=== PATIENT | female | born 1990 | race Caucasian/White ===

== ENCOUNTER → 2016-06-17 | Outpatient (CLI) | payer BC ==
[~2016-06-17] MED LIST: ALBUAER2 INH; ANTICRE6 PO; DIVA500T59 PO; DPKSR/250 PO; LEVOIUD; RISP-99 PO; RISP0.5T4 PO; ZOLP5TAB PO
[2016-06-20 14:54] LABS: CHLAMYDIA TRACH RNA*** NOT DETECTED (NOT DETECTED); GC (NEIS GONORRHOEAE)RNA** NOT DETECTED (NOT DETECTED)
== END | disposition home or self-care (01) ==
LOC: C.LABSPEC 17:58
PROVIDERS: ATTEND Obstetrics & Gynecology
DX: Z11.3 Encounter for screening for infections with a predominantly sexual mode of transmission (principal)

== ENCOUNTER → 2016-06-17 | Outpatient (CLI) | payer BC | END | disposition home or self-care (01) | LOC: C.LAB1850 16:47 | PROVIDERS: ATTEND Obstetrics & Gynecology | DX: Z11.3 Encounter for screening for infections with a predominantly sexual mode of transmission (principal) ==

== ENCOUNTER → 2016-06-17 | Outpatient (CLI) | payer BC | END | disposition home or self-care (01) | LOC: C.PAPS 09:58 | PROVIDERS: ATTEND Obstetrics & Gynecology | DX: Z01.419 Encounter for gynecological examination (general) (routine) without abnormal findings (principal) ==

== ENCOUNTER 2016-08-13 16:14 | Observation (INO) | payer BC ==
[~2016-08-13] VITALS: Ht 149.9 cm; Wt 57.7 kg
[~2016-08-13 16:14] MED LIST changes: -DIVA500T59 PO; -DPKSR/250 PO; -RISP-99 PO; -RISP0.5T4 PO; -ZOLP5TAB PO
[2016-08-13] MEDS ORDERED: LORAZEPAM 2 MG/ML 1 ML VIAL IV STA (16:24)
[2016-08-13] MEDS ORDERED: HALOPERIDOL LACTATE 5 MG/ML 1 ML VIAL IM STA (16:24)
[2016-08-13] MEDS ORDERED: SODIUM CHLORIDE 0.9% 1000ML 1,000 ML IV STA ×2 (16:24→19:34)
--- NOTE | 2016-08-13 16:34 | EMERGENCY ROOM VISIT NOTE ---
History Report prepared by Du: Carlos A Rocha Under the Supervision of: Dr. Teofilo Coronel D.O. First contact with patient: 16:24 Chief Complaint: MENTAL HEALTH EVALUATION Stated Complaint: MENTAL HEALTH EVAL History of Present Illness The patient is a 26 year old female who presents to the Emergency Room via EMS with complaints of a persistent altered mental status that started prior to arrival today. Per the nursing staff, the patient was found walking naked on [address]. She was talking to herself, and is continuing to talk to herself. She does respond to questions, however. The patient says that she did "all the drugs in the world today" She also admits to drinking alcohol today. The patient is a [employer] college student. History limited secondary to patient's altered mental status. Source of History: patient History Limited By: AMS Onset: Prior to arrival today Position: other (global - ams) Symptom Intensity: walking down a road naked Timing: other (persistent) Note: Associated symptoms: Talking to herself. Review of Systems See HPI for pertinent positives & negatives. A total of 10 systems reviewed and were otherwise negative. 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 Talking to herself, but would respond to verbal commands. EYES: The conjunctivae are clear. The pupils are round and reactive. EARS, NOSE, MOUTH AND THROAT: The nose is without any evidence of any deformity. Mucous membranes are moist tongue is midline NECK: The neck is nontender and supple. RESPIRATORY: Normal respiratory effort is noted there is no evidence of wheezing rhonchi or rales CARDIOVASCULAR: Regular rate and rhythm noted there no murmurs rubs or gallops normal S1 normal S2 GASTROINTESTINAL: The abdomen is soft. Bowel sounds are present in all quadrants. Abdomen is nontender MUSCULOSKELETAL/EXTREMITIES: There is no evidence of gross deformity full range of motion is noted in the hips and shoulders SKIN: Bruising on left leg, age indeterminate in appearance. No ecchymosis noted on upper body. NEUROLOGIC: Patient is awake alert and oriented to person, place, but no situation. Patellar tendon reflexes 2+ bilaterally. PSYCH: Patient was very guarded and anxious, responding to internal stimuli and laughing inappropriately. Medical Decision & Procedures ER Provider Diagnostic Interpretation: Radiology results as stated below per my review and radiologist interpretation: HEAD CT NONCONTRAST CT DOSE: 537.48 mGy.cm HISTORY: OVERDOSE TECHNIQUE: Multiaxial CT images of the head were performed without the use of intravenous contrast. Automated exposure control was utilized for this study. Comparison: None. Findings: The paranasal sinuses and mastoid air cells are clear. The calvarium and skull base are intact. The ventricles and sulci are within normal limits. There is no mass, hematoma, midline shift, or acute infarct. Impression: No acute intracranial abnormality. Electronically signed by: Alistair Steven M.D. 08/13/2016 5:39 PM Dictated Date/Time: 08/13/2016 5:36 PM CHEST ONE VIEW PORTABLE HISTORY: Overdose COMPARISON: None. FINDINGS: The lungs are clear. Cardiac silhouette is normal in size. No pleural effusions. No pneumothorax. IMPRESSION: No acute process. Electronically signed by: Alistair Steven M.D. 08/13/2016 4:45 PM Dictated Date/Time: 08/13/2016 4:45 PM Laboratory Results 08/13/16 16:35 Red Blood Count 5.06, Mean Corpuscular Volume 85.6, Mean Corpuscular Hemoglobin 30.2, Mean Corpuscular Hemoglobin Concent 35.3, Mean Platelet Volume 9.3, Neutrophils (%) (Auto) 75.9, Lymphocytes (%) (Auto) 18.6, Monocytes (%) (Auto) 4.8, Eosinophils (%) (Auto) 0.3, Basophils (%) (Auto) 0.2, Neutrophils # (Auto) 7.57, Lymphocytes # (Auto) 1.86, Monocytes # (Auto) 0.48, Eosinophils # (Auto) 0.03, Basophils # (Auto) 0.02 Test 08/13/16 16:21 08/13/16 16:35 08/13/16 17:45 08/13/16 18:00 Bedside Glucose 74 mg/dl (70-90) White Blood Count 9.98 K/uL (4.8-10.8) Red Blood Count 5.06 M/uL (4.2-5.4) Hemoglobin 15.3 g/dL (12.0-16.0) Hematocrit 43.3 % (37-47) Mean Corpuscular Volume 85.6 fL (80-100) Mean Corpuscular Hemoglobin 30.2 pg (25-34) Mean Corpuscular Hemoglobin Concent 35.3 g/dl (32-36) Platelet Count 319 K/uL (130-400) Mean Platelet Volume 9.3 fL (7.4-10.4) Neutrophils (%) (Auto) 75.9 % Lymphocytes (%) (Auto) 18.6 % Monocytes (%) (Auto) 4.8 % Eosinophils (%) (Auto) 0.3 % Basophils (%) (Auto) 0.2 % Neutrophils # (Auto) 7.57 K/uL (1.4-6.5) Lymphocytes # (Auto) 1.86 K/uL (1.2-3.4) Monocytes # (Auto) 0.48 K/uL (0.11-0.59) Eosinophils # (Auto) 0.03 K/uL (0-0.5) Basophils # (Auto) 0.02 K/uL (0-0.2) RDW Standard Deviation 39.7 fL (36.4-46.3) RDW Coefficient of Variation 12.7 % (11.5-14.5) Immature Granulocyte % (Auto) 0.2 % Immature Granulocyte # (Auto) 0.02 K/uL (0.00-0.02) Prothrombin Time 12.0 SECONDS (9.0-12.0) Prothromb Time International Ratio 1.1 (0.9-1.1) Activated Partial Thromboplast Time 29.3 SECONDS (21.0-31.0) Partial Thromboplastin Ratio 1.1 Total Bilirubin 1.1 mg/dl (0.2-1) Direct Bilirubin 0.2 mg/dl (0-0.2) Aspartate Amino Transf (AST/SGOT) 15 U/L (15-37) Alanine Aminotransferase (ALT/SGPT) 11 U/L (12-78) Alkaline Phosphatase 62 U/L (45-117) Total Creatine Kinase 118 U/L (26-192) Total Protein 8.2 gm/dl (6.4-8.2) Albumin 4.6 gm/dl (3.4-5.0) Lipase 70 U/L (73-393) Human Chorionic Gonadotropin, Qual NEG (NEG) Salicylates Level < 1.7 mg/dl (2.8-20) Acetaminophen Level < 2 ug/ml (10-30) Ethyl Alcohol mg/dL < 3.0 mg/dl (0-3) Urine Color YELLOW Urine Appearance CLEAR (CLEAR) Urine pH 5.0 (4.5-7.5) Urine Specific [place] 1.010 (1.000-1.030) Urine Protein NEG (NEG) Urine Glucose (UA) NEG (NEG) Urine Ketones 4+ (NEG) Urine Occult Blood NEG (NEG) Urine Nitrite NEG (NEG) Urine Bilirubin NEG (NEG) Urine Urobilinogen NEG (NEG) Urine Leukocyte Esterase NEG (NEG) Urine Opiates Screen NEG (NEG) Urine Methadone, Qualitative NEG (NEG) Urine Barbiturates NEG (NEG) Urine Phencyclidine (PCP) Level NEG (NEG) Ur Amphetamine/Methamphetamine NEG (NEG) MDMA (Ecstasy) Screen NEG (NEG) Urine Benzodiazepines Screen NEG (NEG) Urine Cocaine Metabolite NEG (NEG) Urine Marijuana (THC) NEG (NEG) Test 08/13/16 20:10 Valproic Acid (Depakene) Level < 3 mcg/ml (50-100) [place] Level < 0.2 mMOL/L (0.6-1.2) Laboratory results per my review. Medications Administered Medications (Trade) Dose Ordered Sig/Rafa Route Start Time Stop Time Status Last Admin Dose Admin Sodium Chloride (Nss 1000ml) 1,000 ml @ 999 mls/hr Q1H1M STAT IV 08/13/16 16:24 08/13/16 17:24 DC 08/13/16 17:18 999 MLS/HR Lorazepam (Ativan Inj) 0.5 mg NOW STAT IV 08/13/16 16:24 08/13/16 16:26 DC 08/13/16 17:19 0.5 MG Haloperidol Lactate 5 mg 5 mg NOW STAT IM 08/13/16 16:24 08/13/16 16:26 DC 08/13/16 17:18 5 MG Sodium Chloride (Nss 1000ml) 1,000 ml @ 999 mls/hr Q1H1M STAT IV 08/13/16 19:34 08/13/16 20:34 DC 08/13/16 19:34 999 MLS/HR ECG Indication: altered mental status Rate (beats per minute): 85 Rhythm: normal sinus Findings: no ectopy, other (no acute ST segment abnormalities) Comparison ECG Date: no prior available ED Course 6: The patient was evaluated in room A7. A complete history and physical examination were performed. 1623: Ordered Haldol Inj 5 mg IM, Ativan 0.5 mg IV, NSS 1000 ml @ 999 mls/hr IV. 5: I reevaluated the patient and she is starting to get better. 0: Upon reevaluation, the patient is getting better. I discussed results and treatment plan with her. She verbalizes agreement and understanding. The patient will be evaluated for further management and care. 2100: I discussed the patient with Dr. Terrazas - [place] assistant professor of sociology - he will evaluate the patient for further treatment. Medical Decision Differential diagnosis: Etiologies such as mood disorder, infection, hypoglycemia, electrolyte abnormalities, cardiac sources, intracerebral event, toxicologic, neurologic, as well as others were entertained. Nursing notes reviewed. Additional history is obtained from the prehospital personnel. The patient is a 26-year-old female who presented to the emergency department for an evaluation of altered mental status. The patient was found walking on a local road undressed. The patient was unable to give history. She appeared to be responding to internal stimuli. She appeared very psychotic in nature. Her vital signs initially were stable but she started to develop unspecified tachycardia while she was in the emergency department. She was treated with Haldol and Ativan as well as IV fluids in the emergency department. She continued to improve but still had episodes of psychosis and appeared to be talking nonsensical. She did not have meningismus or fever. Her white blood cell count was not elevated. The patient was also evaluated by the emergency Department mental health shoe parts caser. The shoe parts caser was able to contact the patient's mother. Overall I do feel this represents a functional disorder rather than an organic disorder but because of the tachycardia that developed I' m unsure if the patient should be medically cleared at this time. For this reason I discussed her case with the on-call [facility] hospitalist group. She may require further observation as a medical inpatient internal omental status started to improve. I do feel that she should also be evaluated by the mental health service. The patient was reevaluated multiple times. Her overall mentation continued to improve but she still had very poor insight into what was happening. Consults Time Called: [phone] Consulting Physician: Dr. Nini Lundy assistant professor of sociology Returned Call: [phone] I discussed the patient with Dr. Nini Lundy assistant professor of sociology - he will evaluate the patient for further treatment. Impression Primary Impression: Altered mental status Additional Impressions: Tachycardia Psychosis Scribe Attestation The scribe's documentation has been prepared under my direction and personally reviewed by me in its entirety. I confirm that the note above accurately reflects all work, treatment, procedures, and medical decision making performed by me. Departure Information Dispostion Being Evaluated By Hospitalist Prescriptions No Active Prescriptions or Reported Meds Referrals No Doctor, Assigned (PCP) Forms HOME CARE DOCUMENTATION FORM, IMPORTANT VISIT INFORMATION Patient Instructions My [facility] Problem Qualifiers Primary Impression: Altered mental status Altered mental status type: unspecified Qualified Codes: R41.82 - Altered mental status, unspecified Additional Impressions: Psychosis Psychosis type: unspecified psychosis type Qualified Codes: F29 - Unspecified psychosis not due to a substance or known physiological condition
--- NOTE | 2016-08-13 16:47 | DIAGNOSTIC IMAGING REPORT ---
CHEST ONE VIEW PORTABLE HISTORY: Overdose COMPARISON: None. FINDINGS: The lungs are clear. Cardiac silhouette is normal in size. No pleural effusions. No pneumothorax. IMPRESSION: No acute process. Electronically signed by: Alistair Steven M.D. 08/13/2016 4:45 PM Dictated Date/Time: 08/13/2016 4:45 PM
[2016-08-13 17:14] LABS: BASO % 0.2 %; BASO ABS # 0.02 K/uL (0-0.2); COMPLETE YES; EOS % 0.3 %; HEMATOCRIT 43.3 % (37-47); IG% 0.2 %; LYMPH % 18.6 %; LYMPH ABS # 1.86 K/uL (1.2-3.4); MEAN CELL VOLUME 85.6 fL (80-100); MEAN CORPUSCULAR HEMOGLOBIN 30.2 pg (25-34); MEAN CORPUSCULAR HGB CONC 35.3 g/dl (32-36); MEAN PLATELET VOLUME 9.3 fL (7.4-10.4); MONO % 4.8 %; NEUT % 75.9 %; PLATELET COUNT 319 K/uL (130-400); RED BLOOD COUNT 5.06 M/uL (4.2-5.4); WHITE BLOOD COUNT 9.98 K/uL (4.8-10.8)
[2016-08-13 17:23] LABS: INR 1.1 (0.9-1.1); PARTIAL THROMBOPLASTIN RATIO 1.1
--- NOTE | 2016-08-13 17:40 | DIAGNOSTIC IMAGING REPORT ---
HEAD CT NONCONTRAST CT DOSE: 537.48 mGy.cm HISTORY: OVERDOSE TECHNIQUE: Multiaxial CT images of the head were performed without the use of intravenous contrast. Automated exposure control was utilized for this study. Comparison: None. Findings: The paranasal sinuses and mastoid air cells are clear. The calvarium and skull base are intact. The ventricles and sulci are within normal limits. There is no mass, hematoma, midline shift, or acute infarct. Impression: No acute intracranial abnormality. Electronically signed by: Alistair Steven M.D. 08/13/2016 5:39 PM Dictated Date/Time: 08/13/2016 5:36 PM
[2016-08-13 17:42] LABS: BUN/CREATININE RATIO 12.2 (10-20); CALCIUM 9.2 mg/dl (8.5-10.1); CREATININE 0.59 mg/dl (0.60-1.20); POTASSIUM 3.4 mmol/L (3.5-5.1)
[2016-08-13 17:46] LABS: PREG INTERNAL NEGATIVE QC NEG CLEAR BACKGROUND; PREG INTERNAL POSITIVE QC POS CONTROL LINE
[2016-08-13 17:53] LABS: ACETAMINOPHEN < 2 ug/ml (10-30)
[2016-08-13 17:57] LABS: URINE APPEARANCE CLEAR (CLEAR); URINE BILIRUBIN NEG (NEG); URINE COLOR YELLOW; URINE NITRITE NEG (NEG); UROBILINOGEN NEG (NEG)
[2016-08-13 18:09] LABS: MANUAL MICROSCOPIC REQUIRED? NO; REVIEW REQ? NO
[2016-08-13 18:30] LABS: BENZODIAZEPINE, URINE NEG (NEG); COCAINE,URINE NEG (NEG); PHENCYCLIDINE, URINE NEG (NEG)
[2016-08-13 21:00] LABS: LITHIUM < 0.2 mMOL/L (0.6-1.2)
--- NOTE | 2016-08-13 23:11 | History and Physical ---
History & Physical Date & Time of Service: Aug 13, 2016 at 23:11 . Chief Complaint: confusion . Primary Care Physician: No Doctor, Assigned . History of Present Illness Source: patient 26 year-old female followed by Kimber Pan PA-C in the [facility]. History of asthma, bipolar disorder, and anxiety per records. Patient states that she was diagnosed with bipolar disorder at the age of 16, but hasn't taken any meds for some time. She questions the diagnosis. Patient was found walking outside today near her place of employment, unclothed , and confused. Police and EMS summoned and she was brought to the ED. Very agitated in ED. Received haloperidol and lorazepam. ED documentation indicates that she stated that she took some drugs and consumed alcohol. At the time of my assessment, patient was cooperative and lucid; she denied any consumption of alcohol or recreational drugs. She has no recollection of the events earlier today. Denies fever, headache, cough, nausea, vomiting, diarrhea, urinary symptoms. Denies auditory or visual hallucinations. . Past Medical/Surgical History Medical Problems: (1) Anxiety Status: Chronic (2) Asthma Status: Chronic (3) Bipolar disorder Status: Chronic . Family History Father- colitis Mother- schizoaffective disorder . 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 . Physical Exam Vital Signs Date Time Temp Pulse Resp B/P Pulse Ox O2 Delivery O2 Flow Rate FiO2 08/13/16 21:47 103 08/13/16 20:34 37.1 120 18 130/81 99 Room Air 08/13/16 18:36 85 12 110/78 97 Room Air 08/13/16 17:19 103 18 133/88 100 Room Air 08/13/16 17:05 97 08/13/16 16:38 37.0 93 22 122/83 99 Room Air General Appearance: WD/WN, no apparent distress Head: normocephalic, atraumatic Eyes: normal inspection, PERRL, EOMI, sclerae normal ENT: hearing grossly normal Neck: supple, no adenopathy, thyroid normal Respiratory/Chest: lungs clear, no respiratory distress Cardiovascular: regular rate, rhythm, no edema, no gallop, no JVD, no murmur, + tachycardia Abdomen/GI: normal bowel sounds, non tender, soft, no organomegaly Extremities/Musculoskelatal: normal inspection, no calf tenderness, no pedal edema Neurologic/Psych: etl developer II-XII nml as tested (PERRL, EOMI, no dysarthria, no facial palsy), no motor/sensory deficits, alert, oriented x 3 Diagnostics Laboratory Results Results Past 24 Hours Test 08/13/16 16:21 08/13/16 16:35 08/13/16 17:45 08/13/16 18:00 Range/Units Bedside Glucose 74 70-90 mg/dl White Blood Count 9.98 4.8-10.8 K/uL Red Blood Count 5.06 4.2-5.4 M/uL Hemoglobin 15.3 12.0-16.0 g/dL Hematocrit 43.3 37-47 % Mean Corpuscular Volume 85.6 80-100 fL Mean Corpuscular Hemoglobin 30.2 25-34 pg Mean Corpuscular Hemoglobin Concent 35.3 32-36 g/dl Platelet Count 319 130-400 K/uL Mean Platelet Volume 9.3 7.4-10.4 fL Neutrophils (%) (Auto) 75.9 % Lymphocytes (%) (Auto) 18.6 % Monocytes (%) (Auto) 4.8 % Eosinophils (%) (Auto) 0.3 % Basophils (%) (Auto) 0.2 % Neutrophils # (Auto) 7.57 1.4-6.5 K/uL Lymphocytes # (Auto) 1.86 1.2-3.4 K/uL Monocytes # (Auto) 0.48 0.11-0.59 K/uL Eosinophils # (Auto) 0.03 0-0.5 K/uL Basophils # (Auto) 0.02 0-0.2 K/uL RDW Standard Deviation 39.7 36.4-46.3 fL RDW Coefficient of Variation 12.7 11.5-14.5 % Immature Granulocyte % (Auto) 0.2 % Immature Granulocyte # (Auto) 0.02 0.00-0.02 K/uL Prothrombin Time 12.0 9.0-12.0 SECONDS Prothromb Time International Ratio 1.1 0.9-1.1 Activated Partial Thromboplast Time 29.3 21.0-31.0 SECONDS Partial Thromboplastin Ratio 1.1 Sodium Level 140 136-145 mmol/L Potassium Level 3.4 3.5-5.1 mmol/L Chloride Level 104 98-107 mmol/L Carbon Dioxide Level 21 21-32 mmol/L Anion Gap 15.0 3-11 mmol/L Blood Urea Nitrogen 7 7-18 mg/dl Creatinine 0.59 0.60-1.20 mg/dl Est Creatinine Clear Calc Drug Dose 117.2 ml/min Estimated GFR () 148.7 Estimated GFR (Non- 128.3 BUN/Creatinine Ratio 12.2 10-20 Random Glucose 70 70-99 mg/dl Calcium Level 9.2 8.5-10.1 mg/dl Total Bilirubin 1.1 0.2-1 mg/dl Direct Bilirubin 0.2 0-0.2 mg/dl Aspartate Amino Transf (AST/SGOT) 15 15-37 U/L Alanine Aminotransferase (ALT/SGPT) 11 12-78 U/L Alkaline Phosphatase 62 45-117 U/L Total Creatine Kinase 118 26-192 U/L Total Protein 8.2 6.4-8.2 gm/dl Albumin 4.6 3.4-5.0 gm/dl Lipase 70 73-393 U/L Human Chorionic Gonadotropin, Qual NEG NEG Salicylates Level < 1.7 2.8-20 mg/dl Acetaminophen Level < 2 10-30 ug/ml Ethyl Alcohol mg/dL < 3.0 0-3 mg/dl Urine Color YELLOW Urine Appearance CLEAR CLEAR Urine pH 5.0 4.5-7.5 Urine Specific [place] 1.010 1.000-1.030 Urine Protein NEG NEG Urine Glucose (UA) NEG NEG Urine Ketones 4+ NEG Urine Occult Blood NEG NEG Urine Nitrite NEG NEG Urine Bilirubin NEG NEG Urine Urobilinogen NEG NEG Urine Leukocyte Esterase NEG NEG Urine Opiates Screen NEG NEG Urine Methadone, Qualitative NEG NEG Urine Barbiturates NEG NEG Urine Phencyclidine (PCP) Level NEG NEG Ur Amphetamine/Methamphetamine NEG NEG MDMA (Ecstasy) Screen NEG NEG Urine Benzodiazepines Screen NEG NEG Urine Cocaine Metabolite NEG NEG Urine Marijuana (THC) NEG NEG Test 08/13/16 20:10 Range/Units Valproic Acid (Depakene) Level < 3 50-100 mcg/ml [place] Level < 0.2 0.6-1.2 mMOL/L Diagnostic Radiology CHEST ONE VIEW PORTABLE FINDINGS: The lungs are clear. Cardiac silhouette is normal in size. No pleural effusions. No pneumothorax. IMPRESSION: No acute process. Electronically signed by: Alistair Steven M.D. 08/13/2016 4:[address] NONCONTRAST Findings: The paranasal sinuses and mastoid air cells are clear. The calvarium and skull base are intact. The ventricles and sulci are within normal limits. There is no mass, hematoma, midline shift, or acute infarct. Impression: No acute intracranial abnormality. Electronically signed by: Alistair Steven M.D. 08/13/2016 5:39 PM . EKG EKG performed at 16:28 reviewed and demonstrated NSR at 85 / minute, no acute changes. . Impression Assessment and Plan ALTERED MENTAL STATUS Etiology uncertain. Head CT negative. No clinical evidence of GROUP ROOMS COORDINATOR infection (no fever, no nuchal rigidity, no leukocytosis). Consider drug ingestion despite negative tox screen. Consider psychiatric etiology. Behavioral Health Team assessed patient in ED and will be consulted to reassess in the morning. TACHYCARDIA Fluctuating heart rate in ED, appears to be related to anxiety. No apparent infection, volume depletion, anemia, etc. Follow. Check TSH with morning labs. VTE PROPHYLAXIS Very low risk for VTE. Ambulate. DISPOSITION Observation status on Med-Surg Unit. Discharge disposition to be determined. Medical follow-up with Kimber Pan PA-C. . VTE Prophylaxis VTE Risk Assessment Done? Y/N: Yes Risk Level: Very Low Given or contraindicated: Treatment not indicated
[2016-08-14] MEDS ORDERED: IV FLUIDS COMPLETED PRN (00:30)
[2016-08-14 02:01] VITALS: BP 116/74; PULSE 105; TEMP 37.2; O2SAT 97; Ht 149.9 cm; Wt 57.7 kg
[2016-08-14 07:08] VITALS: BP 127/79; PULSE 104; TEMP 37.1; O2SAT 98
[2016-08-14 08:12] LABS: BLOOD UREA NITROGEN 4 mg/dl (7-18); BUN/CREATININE RATIO 8.8 (10-20); CALCIUM 8.8 mg/dl (8.5-10.1); CARBON DIOXIDE 22 mmol/L (21-32); CHLORIDE 110 mmol/L (98-107); GLUCOSE 93 mg/dl (70-99); POTASSIUM 3.5 mmol/L (3.5-5.1); SODIUM 143 mmol/L (136-145)
--- NOTE | 2016-08-14 12:31 | Progress Note ---
Internal Med Progress Note Date of Service: Aug 14, 2016. Provider Documentation: SUBJECTIVE: Patient is doing well now. AAOX3. Does not recall what happened to her. Unable to give any details. Denies any drug or alcohol abuse. No fever, chills, chest pain, SOB, nausea, vomiting, palpitations, abdominal pain. OBJECTIVE: Vital Signs-as noted below Exam: General-AAOX3, no distress Neck-Supple, No JVD Lungs-AEBE, no wheezing, rhonchi Heart-Tachycardia, sinus , No murmurs Abdomen-Soft, non tender, non distended, BS present Extremities-No edema Neuro-AAOX3, Grossly no focal deficits Lab data as noted below. Diagnostic Radiology CHEST ONE VIEW PORTABLE FINDINGS: The lungs are clear. Cardiac silhouette is normal in size. No pleural effusions. No pneumothorax. IMPRESSION: No acute process. Electronically signed by: Alistair Steven M.D. 08/13/2016 4:[address] NONCONTRAST Findings: The paranasal sinuses and mastoid air cells are clear. The calvarium and skull base are intact. The ventricles and sulci are within normal limits. There is no mass, hematoma, midline shift, or acute infarct. Impression: No acute intracranial abnormality. Electronically signed by: Alistair Steven M.D. 08/13/2016 5:39 PM . EKG EKG performed at 16:28 reviewed and demonstrated NSR at 85 / minute, no acute changes. ASSESSMENT & PLAN: Assessment and Plan : ALTERED MENTAL STATUS : Etiology uncertain. D/D considered: Drugs ingestion despite negative urine tox screen, denying it, Psychiatric etiology ? -Work up- Head CT negative.; No clinical evidence of PHYSICAL ANTHROPOLOGIST infection (no fever, no nuchal rigidity, no leukocytosis). -Psychiatric consult placed. TACHYCARDIA, SINUS : Improving No apparent infection, volume depletion, anemia, etc. -TSH- 3.2 normal -Monitor VTE PROPHYLAXIS Very low risk for VTE. Ambulate. DISPOSITION Observation status Discharge disposition to be determined. Will monitor heart rate on tele Medical follow-up with Kimber Pan PA-C. . Vital Signs: Date Time Temp Pulse Resp B/P Pulse Ox O2 Delivery O2 Flow Rate FiO2 08/14/16 08:00 Room Air 08/14/16 07:08 37.1 104 18 127/79 98 Room Air 08/14/16 02:01 37.2 105 16 116/74 97 Room Air 08/14/16 01:02 106 16 132/78 100 Room Air 08/13/16 21:47 103 08/13/16 20:34 37.1 120 18 130/81 99 Room Air 08/13/16 18:36 85 12 110/78 97 Room Air 08/13/16 17:19 103 18 133/88 100 Room Air 08/13/16 17:05 97 08/13/16 16:38 37.0 93 22 122/83 99 Room Air Lab Results: Results Past 24 Hours Test 08/13/16 16:21 08/13/16 16:35 08/13/16 17:45 08/13/16 18:00 Range/Units Bedside Glucose 74 70-90 mg/dl White Blood Count 9.98 4.8-10.8 K/uL Red Blood Count 5.06 4.2-5.4 M/uL Hemoglobin 15.3 12.0-16.0 g/dL Hematocrit 43.3 37-47 % Mean Corpuscular Volume 85.6 80-100 fL Mean Corpuscular Hemoglobin 30.2 25-34 pg Mean Corpuscular Hemoglobin Concent 35.3 32-36 g/dl Platelet Count 319 130-400 K/uL Mean Platelet Volume 9.3 7.4-10.4 fL Neutrophils (%) (Auto) 75.9 % Lymphocytes (%) (Auto) 18.6 % Monocytes (%) (Auto) 4.8 % Eosinophils (%) (Auto) 0.3 % Basophils (%) (Auto) 0.2 % Neutrophils # (Auto) 7.57 1.4-6.5 K/uL Lymphocytes # (Auto) 1.86 1.2-3.4 K/uL Monocytes # (Auto) 0.48 0.11-0.59 K/uL Eosinophils # (Auto) 0.03 0-0.5 K/uL Basophils # (Auto) 0.02 0-0.2 K/uL RDW Standard Deviation 39.7 36.4-46.3 fL RDW Coefficient of Variation 12.7 11.5-14.5 % Immature Granulocyte % (Auto) 0.2 % Immature Granulocyte # (Auto) 0.02 0.00-0.02 K/uL Prothrombin Time 12.0 9.0-12.0 SECONDS Prothromb Time International Ratio 1.1 0.9-1.1 Activated Partial Thromboplast Time 29.3 21.0-31.0 SECONDS Partial Thromboplastin Ratio 1.1 Sodium Level 140 136-145 mmol/L Potassium Level 3.4 3.5-5.1 mmol/L Chloride Level 104 98-107 mmol/L Carbon Dioxide Level 21 21-32 mmol/L Anion Gap 15.0 3-11 mmol/L Blood Urea Nitrogen 7 7-18 mg/dl Creatinine 0.59 0.60-1.20 mg/dl Est Creatinine Clear Calc Drug Dose 117.2 ml/min Estimated GFR () 148.7 Estimated GFR (Non- 128.3 BUN/Creatinine Ratio 12.2 10-20 Random Glucose 70 70-99 mg/dl Calcium Level 9.2 8.5-10.1 mg/dl Total Bilirubin 1.1 0.2-1 mg/dl Direct Bilirubin 0.2 0-0.2 mg/dl Aspartate Amino Transf (AST/SGOT) 15 15-37 U/L Alanine Aminotransferase (ALT/SGPT) 11 12-78 U/L Alkaline Phosphatase 62 45-117 U/L Total Creatine Kinase 118 26-192 U/L Total Protein 8.2 6.4-8.2 gm/dl Albumin 4.6 3.4-5.0 gm/dl Lipase 70 73-393 U/L Human Chorionic Gonadotropin, Qual NEG NEG Salicylates Level < 1.7 2.8-20 mg/dl Acetaminophen Level < 2 10-30 ug/ml Ethyl Alcohol mg/dL < 3.0 0-3 mg/dl Urine Color YELLOW Urine Appearance CLEAR CLEAR Urine pH 5.0 4.5-7.5 Urine Specific [place] 1.010 1.000-1.030 Urine Protein NEG NEG Urine Glucose (UA) NEG NEG Urine Ketones 4+ NEG Urine Occult Blood NEG NEG Urine Nitrite NEG NEG Urine Bilirubin NEG NEG Urine Urobilinogen NEG NEG Urine Leukocyte Esterase NEG NEG Urine Opiates Screen NEG NEG Urine Methadone, Qualitative NEG NEG Urine Barbiturates NEG NEG Urine Phencyclidine (PCP) Level NEG NEG Ur Amphetamine/Methamphetamine NEG NEG MDMA (Ecstasy) Screen NEG NEG Urine Benzodiazepines Screen NEG NEG Urine Cocaine Metabolite NEG NEG Urine Marijuana (THC) NEG NEG Test 08/13/16 20:10 08/14/16 07:08 Range/Units Valproic Acid (Depakene) Level < 3 50-100 mcg/ml [place] Level < 0.2 0.6-1.2 mMOL/L Sodium Level 143 136-145 mmol/L Potassium Level 3.5 3.5-5.1 mmol/L Chloride Level 110 98-107 mmol/L Carbon Dioxide Level 22 21-32 mmol/L Anion Gap 11.0 3-11 mmol/L Blood Urea Nitrogen 4 7-18 mg/dl Creatinine 0.50 0.60-1.20 mg/dl Est Creatinine Clear Calc Drug Dose 134.3 ml/min Estimated GFR () > 150.0 Estimated GFR (Non- 135.5 BUN/Creatinine Ratio 8.8 10-20 Random Glucose 93 70-99 mg/dl Calcium Level 8.8 8.5-10.1 mg/dl Thyroid Stimulating Hormone (TSH) 2.320 0.300-4.500 uIu/ml
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
[2016-08-14 15:10] VITALS: BP 131/85; PULSE 117; TEMP 36.8; O2SAT 99
[2016-08-14] MEDS ORDERED: HALOPERIDOL LACTATE 5 MG/ML 1 ML VIAL ONE (18:30)
[2016-08-14] MEDS ORDERED: LORAZEPAM 2 MG/ML 1 ML VIAL ONE (18:41)
[2016-08-14] MEDS ORDERED: NURSING VERBAL MED ORDER ONE ×2 (18:45→19:45)
--- NOTE | 2016-08-14 19:01 | Progress Note ---
Progress Note Date of Service Aug 14, 2016. Progress Note Patient tried to elope and security had to be called. Patient is hallucinating, combative- similar to the psychotic episode when she was in ED. Received a dose of IM Haldol 5 mg , IM Ativan 1 mg --> still combative. Will give another 1 mg IM Ativan now . If still agitated, repeat haldol 5 mg and Ativan 2 mg IM in an hour and contact psychiatry. Restraints ordered. Psychiatry RN by bedside who discussed case with psychiatrist and mx as above
[2016-08-14] MEDS ORDERED: LORAZEPAM 2 MG/ML 1 ML VIAL IM ONE (19:15)
[2016-08-14] MEDS ORDERED: HALOPERIDOL LACTATE 5 MG/ML 1 ML VIAL IM ONE (19:50)
[2016-08-14] MEDS ORDERED: BENZTROPINE MESYLATE 1 MG/ML 2 ML AMP IM ONE (19:50)
[2016-08-15 07:30] VITALS: BP 150/93; PULSE 95; TEMP 36.3; O2SAT 100
--- NOTE | 2016-08-15 09:47 | Progress Note ---
Internal Med Progress Note Date of Service: Aug 15, 2016. Provider Documentation: SUBJECTIVE: Patient had a psychotic episode yesterday evening when she became combative, hallucinating, trying to elope. Had to put her under restraints, 1:1 observation. Received total of 8 mg IM Haldol, 2 mg IM Ativan, 1 mg Cogentin , AAOX3 now. Does not recall what happened to her. No suicidal ideations. Denies any drug or alcohol abuse. No fever, chills, chest pain, SOB, nausea, vomiting, palpitations, abdominal pain. OBJECTIVE: Vital Signs-as noted below Exam: General-AAOX3, no distress Neck-Supple, No JVD Lungs-AEBE, no wheezing, rhonchi Heart-Tachycardia, sinus , No murmurs Abdomen-Soft, non tender, non distended, BS present Extremities-No edema Neuro-AAOX3, Grossly no focal deficits Lab data as noted below. Diagnostic Radiology CHEST ONE VIEW PORTABLE FINDINGS: The lungs are clear. Cardiac silhouette is normal in size. No pleural effusions. No pneumothorax. IMPRESSION: No acute process. Electronically signed by: Alistair Steven M.D. 08/13/2016 4:[address] NONCONTRAST Findings: The paranasal sinuses and mastoid air cells are clear. The calvarium and skull base are intact. The ventricles and sulci are within normal limits. There is no mass, hematoma, midline shift, or acute infarct. Impression: No acute intracranial abnormality. Electronically signed by: Alistair Steven M.D. 08/13/2016 5:39 PM . EKG EKG performed at 16:28 reviewed and demonstrated NSR at 85 / minute, no acute changes. ASSESSMENT & PLAN: Assessment and Plan : ALTERED MENTAL STATUS /PSYCHOTIC EPISODES Etiology uncertain. Had 2 psychotic episodes- one in ED and 2nd one on 08/14/16 evening requiring total of 8 mg IM Haldol, 2 mg IM Ativan, 1 mg Cogentin, restraints to calm her down. D/D considered: Drugs ingestion despite negative urine tox screen, denying it though, Bipolar disorder, Manic phase being off meds for years now, not following up with psychiatrist -Work up- Head CT negative.; No clinical evidence of CERTIFIED DRUG COUNSELOR infection (no fever, no nuchal rigidity, no leukocytosis). -Psychiatric consult placed. Appreciate inputs TACHYCARDIA, SINUS : Improving No apparent infection, volume depletion, anemia, etc. -TSH- 3.2 normal -Monitor VTE PROPHYLAXIS Very low risk for VTE. Ambulate. DISPOSITION Observation status Discharge disposition to be determined- Unclear if would require inpatient psychiatry rx. Patient is willing to if needed Medical follow-up with Kimber Pan PA-C. Father flew from [place] yesterday. Requesting to speak to psychiatrist. Updated him. . Vital Signs: Date Time Temp Pulse Resp B/P Pulse Ox O2 Delivery O2 Flow Rate FiO2 08/15/16 08:00 Room Air 08/15/16 07:30 36.3 95 18 150/93 100 Room Air 08/15/16 00:00 Room Air 08/14/16 16:00 Room Air 08/14/16 15:10 36.8 117 16 131/85 99 Room Air
--- NOTE | 2016-08-15 11:47 | Discharge Instructions ---
Discharge Instructions Date of Service Aug 15, 2016. Admission Reason for Admission: Altered Mental Status Discharge Discharge Diagnosis / Problem: 1. Psychosis Discharge Goals Goal(s): Improve disease control, Prevent Disease Progression Activity Recommendations Activity Limitations: resume your previous activity . Current Hospital Diet Patient's current hospital diet: Regular Diet Discharge Diet Recommended Diet: Regular Diet Pending Studies Studies pending at discharge: no Medical Emergencies . Who to Call and When: Medical Emergencies: If at any time you feel your situation is an emergency, please call 911 immediately. . Non-Emergent Contact Non-Emergency issues call your: Primary Care Provider . . "Provider Documentation" section prepared by Regina Moncada. VTE Core Measure Inpt VTE Proph given/why not?: Treatment not indicated
--- NOTE | 2016-08-15 11:54 | Discharge Summary ---
Discharge Summary Date of Service Aug 15, 2016. Discharge Summary Admission Date: Aug 13, 2016 at 23:16 Discharge Date: Aug 15, 2016 Discharge Disposition: [facility] ([facility]) Principal Diagnosis: 1. Psychotic episodes, probably bipolar disorder (Manic phase) 2. Sinus tachycardia Procedures: Tele monitoring 1:1 Observation CXR Urine tox screen TSH- 2.32 Consultations: Psychiatry Pending Studies/Follow-Up: None Medication Reconciliation Medication Profile: No Active Prescriptions or Reported Meds Admission Information HPI (per Admitting provider): 26 year-old female followed by Kimber Pan PA-C in the [facility]. History of asthma, bipolar disorder, and anxiety per records. Patient states that she was diagnosed with bipolar disorder at the age of 16, but hasn't taken any meds for some time. She questions the diagnosis. Patient was found walking outside today near her place of employment, unclothed , and confused. Police and EMS summoned and she was brought to the ED. Very agitated in ED. Received haloperidol and lorazepam. ED documentation indicates that she stated that she took some drugs and consumed alcohol. At the time of my assessment, patient was cooperative and lucid; she denied any consumption of alcohol or recreational drugs. She has no recollection of the events earlier today. Denies fever, headache, cough, nausea, vomiting, diarrhea, urinary symptoms. Denies auditory or visual hallucinations. . 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 Was found outside her work place naked and brought to ED by EMS. Hx of bipolar disorder since age 16 years, but not taking any medications. Probably bipolar disorder, Manic phase ? . D/D considered: Drugs ingestion but negative urine tox screen and denying taking any medications. -Work up- Head CT negative.; No clinical evidence of MANAGER BENEFIT infection (no fever, no nuchal rigidity, no leukocytosis). -Psychiatric consult placed. Appreciate inputs-- To transfer to [facility] Psychiatric unit todya TACHYCARDIA, SINUS : Improved No apparent infection, volume depletion, anemia, etc. -TSH- 3.2 normal -Monitor VTE PROPHYLAXIS Very low risk for VTE. Ambulate. DISPOSITION Observation status Medical follow-up with Kimber Pan PA-C. Father flew from [place] yesterday. Updated him Okay to transfer to [facility] Psychiatric unit today. Discussed with psychiatry, [facility]- has a bed available today . Total time spent on discharge = 28 minutes This includes examination of the patient, discharge planning, medication reconciliation, and communication with other providers. Discharge Instructions Transferred to [facility] Psychiatric Unit
--- NOTE | 2016-08-15 12:07 | Psychiatric Progress Notes ---
Psychiatric Progress Note Date of Service Aug 15, 2016. Notes Patient had another episode of bizarre behavior last night including disrobing and walking in the hallway. Became agitated requiring haldol/ativan and physical restraint. Today can identify more symptoms that would be congruent with a manic episode including fast thoughts, sleep impairment, distorted thoughts and behaviors. Long discussion with patient and her father. Have recommended inpatient treatment, and willing to sign in voluntarily. Will transfer to the [facility] under Dr. Mccormick's service.
[2016-08-15 13:06] VITALS: BP 150/93; PULSE 95; TEMP 36.3; O2SAT 100
== END 2016-08-15 13:18 ==
LOC: ENRESERVDT → ENRESERVTM → C.EDA 16:15 → C.MED 23:16
PROVIDERS: ADMIT Hospitalist; ATTEND Internal Medicine
DX: F29 Unspecified psychosis not due to a substance or known physiological condition (principal); R00.0 Tachycardia, unspecified; F31.9 Bipolar disorder, unspecified; J45.909 Unspecified asthma, uncomplicated; Z81.8 Family history of other mental and behavioral disorders

== ENCOUNTER 2016-08-15 13:18 | Inpatient (IN) | payer BC ==
[~2016-08-15] VITALS: Ht 147.3 cm; Wt 57.3 kg
[2016-08-15] MEDS ORDERED: MAGNESIUM HYDROXIDE SUSP 30 ML UDC PO PRN (14:15)
[2016-08-15] MEDS ORDERED: SODIUM CHLORIDE 0.65% NA SOLN 45 ML (OCEAN) PRN (14:15)
[2016-08-15] MEDS ORDERED: BISMUTH SUBSALICYLATE PER ML OMNICELL CHARGE PO PRN (14:15)
[2016-08-15] MEDS ORDERED: ALUMINUM/MAGNESIUM SUSP 30 ML UDC PO PRN (14:15)
[2016-08-15] MEDS ORDERED: HALOPERIDOL 5 MG TAB PO PRN (14:15)
[2016-08-15] MEDS ORDERED: ACETAMINOPHEN 325 MG TAB PO PRN (14:15)
[2016-08-15] MEDS ORDERED: hydrOXYzine HCL 25 MG TAB PO PRN (14:15)
[2016-08-15] MEDS ORDERED: RISPERIDONE ODT 0.5MG PO ONE (14:30)
[2016-08-15 14:38] VITALS: BP 109/73; PULSE 96; TEMP 36.6; Ht 147.3 cm; Wt 57.3 kg
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
[2016-08-15] MEDS ORDERED: INFLUENZA ADMINISTRATION CHARGE ONE (16:30)
[2016-08-15] MEDS ORDERED: INFLUENZA VIRUS QUAD VACCINE 0.5 ML SYR IM. ONE (16:30)
[2016-08-15] MEDS: RISPERIDONE ODT 0.5MG PO SCH (21:23)
[2016-08-16 06:40] VITALS: BP_SYST 121; BP_SYST 139; BP_DIAS 87; BP_DIAS 88; PULSE 126; PULSE 147; TEMP 36.9
[2016-08-16] MEDS: RISPERIDONE ODT 0.5MG PO SCH ×2 (07:43→21:25)
[2016-08-16 08:11] LABS: CHOLESTEROL/HDL RATIO 2.6
--- NOTE | 2016-08-16 13:18 | Psychiatric Progress Notes ---
Progress Note Date of Service Aug 16, 2016. Interval History 26-year-old woman with a reported history of bipolar disorder, admitted to the hospital after having been found outside in the cold, naked, walking down the street. This occurred a second time here in the hospital. She denies that she has consumed illegal substances. She does endorse some symptoms that could be congruent with a hypomanic episode, including impaired sleep, fast thoughts, and elevated energy. She admits that her thoughts are distorted and she cannot completely explain her notion of "thinking out of the box". She was admitted on a 201 commitment and started on Risperdal. Chief Complaint "I'm feeling happier". Subjective Patient was seen & assessed interval progress reviewed with Treatment Team. I met with patient's father with her permission at family request who expressed worries about her managing her symptoms/return to work/prognosis. He was quite focussed on trigger for episode and reviewed that bipolar cee can occur with no clear trigger years or decades apart. He reviewed how difficult it is for him to hear of her disrobing and being hyperreligious when his ex , he mother had a similar episodes. She was ultimately diagnosed with schizoaffective disorder but was also using cocaine heavily. reviewed her breakthrough symptoms yesterday afternoon (thought disorganization, thinking "out of the box") that responded to prn dose of Risperdal. Reviewed dosing of medication and course of illness. Patient is without complaints. States she recognizes need for medication outpatient. She had some difficulty with open ended questions but denied SI/HI/schuler. Review of Systems Psych: denies symptoms other than stated above Constitutional: denied Cardiovascular: denied GI: denied Neurologic: denied Remainder of 10 body systems also reviewed and denied other than noted above. Sleep Information Total Hours of Sleep: 8.00 Meal Information Percent of Breakfast Consumed: 90 Percent of Dinner Consumed: 50 Mental Status Exam During interview pt is: alert and oriented, cooperative Appearance: appropriately dressed, appropriately groomed Eye contact is: good Motor behavior is: steady gait & station, no abnormal motor movements Speech: normal in rate, rhythm & volume Affect: blunted, anxious Mood is: anxious Thought process: goal directed Thought content: cognitive distortions Suicidal thought are: denied Homicidal thoughts are: denied Hallucinations: denies auditory, denies visual Cognition: memory grossly intact (impaired for recent events), attention grossly intact Intelligence estimated to be: average Insight: limited Judgement: limited Summary of Past History father to provide prior treatment provider contact into for BRIANNA. Confirmed past trials of lithium, depakote (most recent, stopped for weight gain), Seroquel (sedating), and possibly lamictal Impression 26-year-old woman with a reported history of bipolar disorder presents with cee, responding to Risperdal. Father is extremely concerned given biological mother's course of illness with schizoaffective but doesn't believe that patient has been using drugs. Continued Inpatient Care Continued inpatient hospitalization is medically necessary for ongoing monitoring and safety. Plan (1) Unspecified psychosis 08/15 - Start Risperdal M 0.5 mg BID - Will use prn haldol in the event of behavioral dysregulation - MNPR for the next 24 hrs. - Q 15 min checks for safety - Encourage participation in group and individual counseling - Obtain OP records from last psychiatrist - Will need local psychiatric care - Reality orientation - The patient denies substance use, but had made a one time statement about taking drugs. patient counseled about the impact of illegal drugs to mental illness, and counseled to abstain. We will offer treatment if substances are identified as a problem during the evaluation. 08/16 --just started Risperdal yesterday, consider increase tomorrow as already clearing; had metabolic labs this am and vitamin D level is normal, baseline AIMS=0 (2) Asthma 08/15 - Patient takes no meds on a scheduled basis - Will monitor Discharge / Aftercare Planning Primary Care Physician: Name: Nikkie Fernandez Therapist: Name: Kerry Shields, appointment tomorrow Compounding And Finishing Supervisor: Name: none Visit Code E&M Code: 57980 Inventory Assets Strengths: Has a steady job, good support from parents Needs: To be in outpatient psychiatric treatment Risk Factors Assessment : Yes /single/: Yes Higher / Fall in social status: No Health problems: No Mental Health Diagnoses: Yes Substance use disorders: No Previous attempt: No Previous psychiatric stay: No Hopelessness: No Protective Factors Assessment Anabaptism beliefs: No : No Responsible for young children: No Employed: Yes Stable relationships: Yes Supportive family: Yes Data Vital Signs Last 24 Hrs: Date Time Temp Pulse Resp B/P Pulse Ox O2 Delivery O2 Flow Rate FiO2 08/16/16 06:40 36.9 147 16 139/87 126 121/88 08/15/16 14:38 36.6 96 18 109/73 Meds Administered Last 24 Hrs: Meds Administered (Past 24Hrs) Medications (Trade) Dose Ordered Sig/Rafa Route Start Time Stop Time Status Last Admin Dose Admin Risperidone (Risperdal M Tab) 0.5 mg BID PO 08/15/16 22:00 09/14/16 21:59 08/16/16 07:43 0.5 MG Risperidone (Risperdal M Tab) 0.5 mg 1430 ONCE PO 08/15/16 14:30 08/15/16 14:55 DC 08/15/16 14:30 0.5 MG Lab Results Last 24 Hrs: Last 24 Hours Test 08/16/16 07:20 Fasting Glucose 88 mg/dl Triglycerides Level 76 mg/dl Cholesterol Level 173 mg/dl HDL Cholesterol 66 mg/dl LDL Cholesterol, Calculated 92 mg/dl VLDL Cholesterol, Calculated 15 mg/dl Cholesterol/HDL Ratio 2.6 25-Hydroxy Vitamin D Total 32.0 ng/ml
[2016-08-17 06:51] VITALS: BP_SYST 115; BP_SYST 126; BP_DIAS 78; BP_DIAS 87; PULSE 128; PULSE 134; TEMP 37
[2016-08-17] MEDS: RISPERIDONE ODT 0.5MG PO SCH (08:53)
[2016-08-17] MEDS ORDERED: RISPERIDONE 0.5 MG TAB PO PRN (12:45)
--- NOTE | 2016-08-17 13:39 | Psychiatric Progress Notes ---
Progress Note Date of Service Aug 17, 2016. Interval History 26-year-old woman with a reported history of bipolar disorder, admitted to the hospital after having been found outside in the cold, naked, walking down the street. This occurred a second time here in the hospital. She denies that she has consumed illegal substances. She does endorse some symptoms that could be congruent with a hypomanic episode, including impaired sleep, fast thoughts, and elevated energy. She admits that her thoughts are distorted and she cannot completely explain her notion of "thinking out of the box". She was admitted on a 201 commitment and started on Risperdal. Chief Complaint "when can I go, I'm happy, see". Subjective Patient was seen & assessed interval progress reviewed with nursing. Friend visited and reported patient's mood seemed somewhat mischievous, placed on elopement last pm as later checking doors. Had a prn Haldol last pm as the prn Risperdal was a 1 time order, more tachy today. Asymptomatic. States she slept well and doesn't understand why she can't leave when completed her safety plan. Evidence of though disorganization remains present but subtle like asking "why can't I be monitored in my apartment?" when clearly means outpatient. Repeatedly asking staff for slippers. Staff reported that friend stated they smoked synthetic MJ over weekend prior to admit. Patient denies. Doesn't appear that synthetics were ordered on medical floor. Review of Systems Psych: denies symptoms other than stated above Constitutional: denied Cardiovascular: denied GI: denied Neurologic: denied Remainder of 10 body systems also reviewed and denied other than noted above. Sleep Information Total Hours of Sleep: 7.00 Meal Information Percent of Breakfast Consumed: 50 Percent of Lunch Consumed: 60 Percent of Dinner Consumed: 100 Mental Status Exam During interview pt is: alert and oriented, cooperative Appearance: appropriately dressed, appropriately groomed Eye contact is: good Motor behavior is: steady gait & station, no abnormal motor movements Speech: normal in rate, rhythm & volume Affect: euthymic (but seems superficial) Mood is: other ("very happy") Thought process: circumstantial Thought content: reality based without delusions Suicidal thought are: denied Homicidal thoughts are: denied Hallucinations: denies auditory, denies visual Cognition: memory grossly intact (impaired for recent events), attention grossly intact Intelligence estimated to be: average Insight: limited Judgement: limited Summary of Past History father to provide prior treatment provider contact into for BRIANNA. Confirmed past trials of lithium, depakote (most recent, stopped for weight gain), Seroquel (sedating), and possibly lamictal Impression 26-year-old woman with a reported history of bipolar disorder presents with cee, responding to Risperdal. Father is extremely concerned given biological mother's course of illness with schizoaffective but doesn't believe that patient has been using drugs. Continued Inpatient Care Continued inpatient hospitalization is medically necessary for ongoing monitoring and safety. Plan (1) Unspecified psychosis 08/15 - Start Risperdal M 0.5 mg BID - Will use prn haldol in the event of behavioral dysregulation - MNPR for the next 24 hrs. - Q 15 min checks for safety - Encourage participation in group and individual counseling - Obtain OP records from last psychiatrist - Will need local psychiatric care - Reality orientation - The patient denies substance use, but had made a one time statement about taking drugs. patient counseled about the impact of illegal drugs to mental illness, and counseled to abstain. We will offer treatment if substances are identified as a problem during the evaluation. 08/16 --just started Risperdal yesterday, consider increase tomorrow as already clearing; had metabolic labs this am and vitamin D level is normal, baseline AIMS=0 08/17 --d/c prn Haldol, low dose Risperdal adequate as not agitated. Titrate hs Risperdal. Screening EKG. (2) Asthma 08/15 - Patient takes no meds on a scheduled basis - Will monitor Discharge / Aftercare Planning Primary Care Physician: Name: Nikkie Fernandez Appointment Notes: As needed Psychiatrist: Name: Dr. William, [facility] Date of Appointment: Aug 23, 2016 Time of Appointment: 12:30 Therapist: Name: Kerry Shields PhD Date of Appointment: Aug 22, 2016 Time of Appointment: 12:30 Sales Training Representative: Name: none Visit Code E&M Code: 26186 Inventory Assets Strengths: Has a steady job, good support from parents Needs: To be in outpatient psychiatric treatment Risk Factors Assessment : Yes /single/: Yes Higher / Fall in social status: No Health problems: No Mental Health Diagnoses: Yes Substance use disorders: No Previous attempt: No Previous psychiatric stay: No Hopelessness: No Protective Factors Assessment Protestant beliefs: No : No Responsible for young children: No Employed: Yes Stable relationships: Yes Supportive family: Yes Data Vital Signs Last 24 Hrs: Date Time Temp Pulse Resp B/P Pulse Ox O2 Delivery O2 Flow Rate FiO2 08/17/16 06:51 37.0 128 16 115/78 134 126/87 Meds Administered Last 24 Hrs: Meds Administered (Past 24Hrs) Medications (Trade) Dose Ordered Sig/Rafa Route Start Time Stop Time Status Last Admin Dose Admin Risperidone (Risperdal M Tab) 0.5 mg BID PO 08/15/16 22:00 08/17/16 12:42 DC 08/17/16 08:53 0.5 MG Risperidone (Risperdal M Tab) 0.5 mg 1430 ONCE PO 08/15/16 14:30 08/15/16 14:55 DC 08/15/16 14:30 0.5 MG Haloperidol (Haldol Tab) 5 mg Q4H PRN PO 08/15/16 14:15 08/17/16 12:42 DC 08/16/16 18:14 5 MG
[2016-08-17] MEDS ORDERED: RISPERIDONE ODT 1MG PO SCH (22:00)
[2016-08-18 06:44] VITALS: BP_SYST 114; BP_SYST 118; BP_DIAS 82; BP_DIAS 87; PULSE 139; PULSE 154; PULSE 80; TEMP 37
[2016-08-18] MEDS ORDERED: RISPERIDONE ODT 0.5MG PO SCH (09:00)
--- NOTE | 2016-08-18 10:19 | Psychiatric Progress Notes ---
Progress Note Date of Service Aug 18, 2016. Interval History 26-year-old woman with a reported history of bipolar disorder, admitted to the hospital after having been found outside in the cold, naked, walking down the street. This occurred a second time here in the hospital. She denies that she has consumed illegal substances. She does endorse some symptoms that could be congruent with a hypomanic episode, including impaired sleep, fast thoughts, and elevated energy. She admits that her thoughts are distorted and she cannot completely explain her notion of "thinking out of the box". She was admitted on a 201 commitment and started on Risperdal. Chief Complaint "I'm still feeling happy and want to go home soon". Subjective Patient was seen & assessed interval progress reviewed with nursing. I spoke with father extensively by phone re: her progress and monitoring of her tachycardia. Reviewed that Haldol is not a standing order medication and did not require any prns yesterday. This am she is alert and calm and independently doing her laundry. She reported possible plan to return home to [place] for an brief period of time but voiced preference to return to work as soon as possible "if they want me back". Father however states he is making arrangements to bring Stepmother up to [place] so that he can return to [place]. Reviewed that discharge plan would need to be changed and that his plan is for her to return to [place] for 3 months. She would need to give up her cat. Family meeting is now set for tomorrow at 10 am to review plan which is necessary to occur prior to discharge. Reviewed that patient is on a voluntary commitment and would not at this time meet commitment criteria. She is agreeable to remaining hospitalized at this time. Review of Systems Psych: denies symptoms other than stated above Constitutional: denied Cardiovascular: denied GI: denied Neurologic: denied Remainder of 10 body systems also reviewed and denied other than noted above. Sleep Information Total Hours of Sleep: 6.50 Meal Information Percent of Breakfast Consumed: 75 Percent of Lunch Consumed: 60 Percent of Dinner Consumed: 75 Mental Status Exam During interview pt is: alert and oriented, cooperative Appearance: appropriately dressed, appropriately groomed Eye contact is: good Motor behavior is: steady gait & station, no abnormal motor movements Speech: normal in rate, rhythm & volume Affect: euthymic (but seems superficial) Mood is: other ("fine") Thought process: circumstantial Thought content: reality based without delusions Suicidal thought are: denied Homicidal thoughts are: denied Hallucinations: denies auditory, denies visual Cognition: attention grossly intact Intelligence estimated to be: average Insight: limited Judgement: limited Summary of Past History father to provide prior treatment provider contact into for BRIANNA. Confirmed past trials of lithium, depakote (most recent, stopped for weight gain), Seroquel (sedating), and possibly lamictal Impression 26-year-old woman with a reported history of bipolar disorder presents with cee, responding to Risperdal. Father is extremely concerned given biological mother's course of illness with schizoaffective but doesn't believe that patient has been using drugs. Continued Inpatient Care Continued inpatient hospitalization is medically necessary for ongoing monitoring and safety. Plan (1) Unspecified psychosis 08/15 - Start Risperdal M 0.5 mg BID - Will use prn haldol in the event of behavioral dysregulation - MNPR for the next 24 hrs. - Q 15 min checks for safety - Encourage participation in group and individual counseling - Obtain OP records from last psychiatrist - Will need local psychiatric care - Reality orientation - The patient denies substance use, but had made a one time statement about taking drugs. patient counseled about the impact of illegal drugs to mental illness, and counseled to abstain. We will offer treatment if substances are identified as a problem during the evaluation. 08/16 --just started Risperdal yesterday, consider increase tomorrow as already clearing; had metabolic labs this am and vitamin D level is normal, baseline AIMS=0 08/17 --d/c prn Haldol, low dose Risperdal adequate as not agitated. Titrate hs Risperdal. Screening EKG. 08/18--medically necessary private room was discontinued last pm, tolerating roommate, family conflict over living arrangements post discharge that needs addressed as impact to follow up plan. Tachy again this am following titration of Risperdal last pm. Will try Risperdal 0.5 mg am and later pm today and check VS qshift. (2) Sinus tachycardia EKG discussed with traveling storekeeper Dr. Roper, asymptomatic, cartoid pulses symmetric/strong, BP stable, no evidence of substance withdraw, agrees rare with Risperdal in patient this age, no additional studies/formal consult needed at this time--will monitor. Discharge / Aftercare Planning Primary Care Physician: Name: Nikkie Fernandez Appointment Notes: As needed Psychiatrist: Name: Dr. William [facility] Date of Appointment: Aug 23, 2016 Time of Appointment: 12:30 Therapist: Name: Kerry Shields PhD Date of Appointment: Aug 22, 2016 Time of Appointment: 12:30 Back Maker: Name: none Visit Code E&M Code: 26953 Inventory Assets Strengths: Has a steady job, good support from parents Needs: To be in outpatient psychiatric treatment Risk Factors Assessment : Yes /single/: Yes Higher / Fall in social status: No Health problems: No Mental Health Diagnoses: Yes Substance use disorders: No Previous attempt: No Previous psychiatric stay: No Hopelessness: No Protective Factors Assessment Moravian beliefs: No : No Responsible for young children: No Employed: Yes Stable relationships: Yes Supportive family: Yes Data Vital Signs Last 24 Hrs: Date Time Temp Pulse Resp B/P Pulse Ox O2 Delivery O2 Flow Rate FiO2 08/18/16 06:44 37.0 139 16 118/87 154 114/82 Meds Administered Last 24 Hrs: Meds Administered (Past 24Hrs) Medications (Trade) Dose Ordered Sig/Rafa Route Start Time Stop Time Status Last Admin Dose Admin Risperidone (Risperdal M Tab) 0.5 mg QAM PO 08/18/16 09:00 09/17/16 08:59 08/18/16 08:23 0.5 MG Risperidone (Risperdal M Tab) 1 mg HS PO 08/17/16 22:00 09/16/16 21:59 08/17/16 21:18 1 MG
[2016-08-18] MEDS: RISPERIDONE ODT 0.5MG PO SCH (17:39)
[2016-08-18 20:14] VITALS: BP 145/91; PULSE 120; PULSE 123
[2016-08-18] MEDS: hydrOXYzine HCL 25 MG TAB PO PRN ×2 (21:51→22:42)
[2016-08-19 06:54] VITALS: BP_SYST 123; BP_SYST 124; BP_DIAS 84; PULSE 114; PULSE 120; TEMP 37.1
[2016-08-19] MEDS: RISPERIDONE ODT 0.5MG PO SCH (09:00)
[2016-08-19 09:23] VITALS: BP 135/86; PULSE 142; PULSE 153; TEMP 37
[2016-08-19] MEDS ORDERED: RISP0.5T4 PO (11:33)
--- NOTE | 2016-08-19 11:40 | Discharge Instructions ---
Discharge Information Report Includes Report will include the: Discharge Instructions & Summary Admission Admission Date / Time: Aug 15, 2016 at 13:18 Reason for Admission: Pyschosis Nos Discharge Discharge Diagnosis / Problem: Psychosis NOS, rule out bipolar disorder Condition at Discharge: Fair Discharge Goals Goal(s): Decrease discomfort, Improve disease control, Prevent Disease Progression Activity Recommendations Activity Limitations: resume your previous activity . Instructions / Follow-Up Instructions / Follow-Up . SPECIAL CARE INSTRUCTIONS: 1. Follow through with your scheduled aftercare appointments. If unable to keep an appointment, please call to reschedule. 2. Take your medication only as prescribed. Medication should not be changed or stopped without the approval of your doctor. In the event of worsening symptoms or concerns about side effects, contact your doctor immediately. 3. Utilize new healthy coping skills, anger management skills, and stress management skills learned during your hospitalization. Journal feelings and process them with a support person. Identify stressors or situations that may result in relapse, deterioration or inappropriate behaviors and develop a plan to deal with those issues. 4. If your coping skills are ineffective and you are in crisis, contact your outpatient providers for direction. If unable to reach your providers, please call the CAN HELP LINE AT or go to the closest Emergency Room. 5. Avoid alcohol and un-prescribed drugs. 6. You have been provided with the Mental Health Advance Directives Pamphlet for your review. AFTERCARE APPOINTMENTS: * Please call your insurance company prior to your scheduled appointment to confirm your aftercare providers are covered. Take your insurance information to your appointments. . Discharge / Aftercare Planning Primary Care Physician: Name: Nikkie Fernandez Appointment Notes: As needed Psychiatrist: Name: Dr Herrera in [place] Phone Number: [phone] Date of Appointment: Sep 02, 2016 Time of Appointment: 3:00 Appointment Notes: take insurance card and copay with you Therapist: Name Of Therapist: Kerry Shields PhD Date of Appointment: Aug 22, 2016 Time of Appointment: 12:30 Investor Relations Coordinator: Name: none . Follow-Up Care Plan for Follow-Up Care: The patient will have follow up care in [place] on September 02. She will be returning to live with her father and step mother upon discharge. Current Hospital Diet Patient's current hospital diet: Regular Diet Discharge Diet Recommended Diet: Regular Diet Procedures Procedures Performed: No Pending Studies Pending Studies at Discharge: No Medical Emergencies . Who to Call and When: Medical Emergencies: For questions or emergencies related to your hospital stay, please contact the Inpatient Behavioral Health Unit at [phone]. A practice clinician is on-call 16/12 for the Behavioral Health Unit for emergencies At any time you feel your situation is an emergency, you may also call 911 immediately. . Non-Emergent Contact Non-Emergency issues call your: Psychiatrist, Therapist Advance Directives Existing Advance Directive: No Do You Have an Existing Mental: No Existing Living Will: No Existing Power of Shoe Folder: No Advance Directives Info Given: To Pt/S.O. Advance Directives Reason: Declines as Mental Health Visit. Discharge Summary Admission HPI Per the Admitting provider: Information obtained by Dr. Mccormick on initial assessment is as follows: According to records, the patient resented to the ER via EMS yesterday after she was found walking naked on [facility]. She was talking to herself, but was able to respond to questions. She said that she did "all the drugs in the world today," and also said she drank alcohol, but her drug screen was negative. Her physical exam was normal, but she was guarded, anxious, appeared to be responding to internal stimuli, and was laughing inappropriately. She was tachycardic, urine had 4+ ketones but was otherwise negative, and CBC and CMP were normal. She had a head CT and chest x-ray that were negative. ER staff called her emergency contact, stepmother Gabino, who lives in [place]. She provided information about her history of bipolar disorder, and stated she been weaned off medications. The patient had sent her a [employer] message the night prior. She did not know of any history of psychotic symptoms. Her father is flying to [place] today. She also gave emergency room staff permission to call her friend Eugenio, whom she works with. He stated that he and the patient dated for 5 years but the relationship ended a year ago , and they have not been in contact for a while. Multiple staff met with her to try to get additional information about the events leading to admission, but she stated she was not able to recall what had happened. She continues to be tachycardic. She's received IV fluids and last evening got Haldol 5 mg and lorazepam 0.5 mg. On my assessment today, the patient states that she recalls going to work at [employer] yesterday, and that it was a normal day. She went outside to "get some fresh air, kind of lost track of time, and I remember being in the ambulance, then here." She denies that she felt stressed, ill, or unusual in any way prior to going outside, and says she "just needed some air." She states she doesn't recall what happened after she went outside, or why the ambulance was called. She denies that she ingested any recreational or prescription medications or other substances that might have caused altered mental status, and can't explain why she stated she had done "all the drugs and the world" in the emergency room. She denies that anything like this has ever happened to her before. She now feels she is back to her normal baseline. She denies symptoms of depression, cee, anxiety, and psychosis. She sees a therapist, Kerry Shielsd, weekly to help with life stressors, and has been seeing her for 4-5 years. She gives somewhat inconsistent reports regarding her psychiatric history, initially stating that she has never seen a psychiatrist or been on medications before, but when asked about the information in her record, that she been diagnosed with bipolar disorder at a young age and treated with lithium and Depakote, she admits that she did take medications, but says they were only given to her because her mother has schizoaffective disorder. She says she has been off medications for years, and denies that she' s had mood symptoms. She scored a 0 on the PHQ-9. The psychiatric liaison nurse spoke with her therapist Kerry Shields, who stated that the patient has been stable, and she is surprised to hear this episode. She saw the patient last , and she was doing exceptionally well. She has been working with her for years, and says she had a chaotic childhood. She's been doing well with her job at [employer] and has been dating someone whom she met online. Today I see her once on the medical floor with her father and once after admission to the [facility]. Nursing reports that she had another episode last evening in which she disrobed and was in the hallway, then becoming agitated requiring Haldol and Cogentin, and further physical restraint in order to keep her safe. Today she says "I promise I won't do that again" as if it was volitional. She describes, as recently she has been trying to think "out of the box" because in the box thinking was "boring". She cannot further explain this, but repeatedly refers to her diagram asking "do you know what I mean". She admits that this out of the box thinking led her to these odd behaviors, but again cannot further explain. She again denies that she has been consuming illicit drugs. She can say today that her sleep has been impaired, getting 4 hours of broken sleep per night where she normally gets 8. She admits that her thoughts are going faster than normal, that her energy is elevated above normal. She denies auditory or visual hallucinations but thinking appears to be distorted but she is unable to provide a clear explanation for her thoughts and behaviors. She says that she had one manic episode previously, at the time she was diagnosed with bipolar disorder, and Seroquel was used to bring her down. She denies that she required hospitalization at that time. She admits that she was "confused" at that time and does not believe that this is similar in nature to that episode. Father is at the bedside, is quite concerned as he witnessed last night's episode. He does not feel safe taking her home in view of the need for medications and restraints last evening. He says that she previously saw a psychiatrist which she says she has not done for 3 years. She has previously been on Seroquel, lithium and Depakote. The family felt live and would rather not see her on that. The patient initially is resistant to the idea of inpatient treatment, as we talk about treatment options. She wants to be able to go home and have her father supervise her. He says that due to his job obligations, he may not be able to stay for an extended period of time and today, again, does not feel safe taking her home. She later agrees for a voluntary admission on mental health. Hospital Course (1) Unspecified psychosis 08/15 - Start Risperdal M 0.5 mg BID - Will use prn haldol in the event of behavioral dysregulation - [facility]PR for the next 24 hrs. - Q 15 min checks for safety - Encourage participation in group and individual counseling - Obtain OP records from last psychiatrist - Will need local psychiatric care - Reality orientation - The patient denies substance use, but had made a one time statement about taking drugs. patient counseled about the impact of illegal drugs to mental illness, and counseled to abstain. We will offer treatment if substances are identified as a problem during the evaluation. 08/16 --just started Risperdal yesterday, consider increase tomorrow as already clearing; had metabolic labs this am and vitamin D level is normal, baseline AIMS=0 08/17 --d/c prn Haldol, low dose Risperdal adequate as not agitated. Titrate hs Risperdal. Screening EKG. 08/18--medically necessary private room was discontinued last pm, tolerating roommate, family conflict over living arrangements post discharge that needs addressed as impact to follow up plan. Tachy again this am following titration of Risperdal last pm. Will try Risperdal 0.5 mg am and later pm today and check VS qshift. (2) Sinus tachycardia EKG discussed with bottom liquor attendant Dr. Roper, asymptomatic, cartoid pulses symmetric/strong, BP stable, no evidence of substance withdraw, agrees rare with Risperdal in patient this age, no additional studies/formal consult needed at this time--will monitor. Risk Factors Assessment : Yes /single/: Yes Higher / Fall in social status: No Health problems: No Mental Health Diagnoses: Yes Substance use disorders: No Previous attempt: No Previous psychiatric stay: No Hopelessness: No Protective Factors Assessment Judaism beliefs: No : No Responsible for young children: No Employed: Yes Stable relationships: Yes Supportive family: Yes Day of Discharge Assessment COURSE OF HOSPITALIZATION: The patient was initially admitted to the medical floor after having been found wandering naked along the street outside of her work. She had a second similar episode while in the hospital. She was initially thought to have been delirious based on substances, but then clearly denied ingesting any substances. She did appear to have some manic symptoms and has been diagnosed with bipolar disorder in the past. She was therefore admitted to the behavioral health unit on a voluntary basis. She was started on Risperdal half milligram twice a day for her distorted thinking which appear to resolve for the most part by the end of her stay.Her father flew up from [place] and was with her throughout this stay. He had multiple meetings with providers and social workers to keep him abreast of the treatment plan. She did not seem to be hallucinating during her stay although her thinking remained odd, using that term "thinking out of the box" as what prompted her to run down the street naked. Her behavior was completely appropriate while on the mental health unit, she took medications without problems. DAY OF DISCHARGE ASSESSMENT: The patient and her father had another family meeting with her today. All are agreed that she is back to baseline and are requesting discharge. She denies any further distorted thoughts and can look back on it and see that her thinking was abnormal. She says that she has enjoyed her stay, and felt that it given her a new perspective on life. Today she denies suicidal or homicidal thinking. She denies auditory or visual hallucinations or overt delusions. She is casually and appropriately dressed. Gait and station are within normal limits. Eye contact is good although staring at times. Speech is of normal rate volume and tone. Recent and remote memory are intact per conversation. Intelligence is estimated to be average. Insight and judgment are improved over admission. Laboratory Test 08/16/16 07:20 Fasting Glucose 88 Triglycerides Level 76 Cholesterol Level 173 HDL Cholesterol 66 LDL Cholesterol, Calculated 92 VLDL Cholesterol, Calculated 15 Cholesterol/HDL Ratio 2.6 25-Hydroxy Vitamin D Total 32.0 Total Time Total Time Spent (min): Greater than 30 minutes Total Time Included: examination of the patient, discharge planning, medication reconciliation, communication with other providers Tobacco Cessation at Discharge Smoking Status: Never Smoker FDA approved Prescription: non-smoker
== END 2016-08-19 14:09 | disposition home or self-care (01) | DRG 885 ==
LOC: C.MHU 13:18
PROVIDERS: ADMIT Psychiatry & Neurology Psychiatry; ATTEND Psychiatry & Neurology Psychiatry
DX: F29 Unspecified psychosis not due to a substance or known physiological condition (principal); F31.9 Bipolar disorder, unspecified; R00.0 Tachycardia, unspecified; J45.909 Unspecified asthma, uncomplicated; Z23 Encounter for immunization

== ENCOUNTER 2016-09-21 01:39 | Emergency (ER) | payer BC ==
[~2016-09-21] VITALS: Ht 149.9 cm; Wt 57.3 kg
[~2016-09-21 01:39] MED LIST changes: -ALBUAER2 INH; -ANTICRE6 PO; -LEVOIUD; +RISP0.5T4 PO
[2016-09-21 01:47] VITALS: TEMP 36.7; Ht 149.9 cm; Wt 57.3 kg
[2016-09-21 02:32] LABS: BASO % 0.4 %; BASO ABS # 0.04 K/uL (0-0.2); COMPLETE YES; EOS % 2.6 %; HEMATOCRIT 38.9 % (37-47); IG% 0.2 %; LYMPH % 28.4 %; LYMPH ABS # 3.01 K/uL (1.2-3.4); MEAN CELL VOLUME 87.4 fL (80-100); MEAN CORPUSCULAR HEMOGLOBIN 30.1 pg (25-34); MEAN CORPUSCULAR HGB CONC 34.4 g/dl (32-36); NEUT % 60.4 %; PLATELET COUNT 290 K/uL (130-400); RED BLOOD COUNT 4.45 M/uL (4.2-5.4); WHITE BLOOD COUNT 10.58 K/uL (4.8-10.8)
--- NOTE | 2016-09-21 02:33 | EMERGENCY ROOM VISIT NOTE ---
History Report prepared by Scribe: Schuyler Mccullough Under the Supervision of: Dr. Luiz Sanchez D.O. First contact with patient: 02:02 Chief Complaint: PSYCHIATRIC PROBLEMS Stated Complaint: HAVEN'T SLEPT,EATEN,DRANK WATER CONSISTANTLY History of Present Illness The patient is a 26 year old female who presents to the Emergency Room for an acute mental health evaluation. The patient has been having trouble sleeping secondary to anxiety. The patient had three 500 mg Depakote tonight in an attempt to sleep. The patient states that she does not feel safe. She denies suicidal or homicidal ideations. The patient attributes her anxiety to her parents. Her parents have been calling and e-mailing her frequently which has been making it harder for her to fall asleep. She follows up with a therapist. Source of History: patient Onset: tonight Position: other (psyche) Quality: other (mental health evaluation) Timing: other (acute) Note: Denies suicidal or homicidal ideations. Review of Systems See HPI for pertinent positives and negatives. A total of ten systems were reviewed and were otherwise negative. Past Medical & Surgical Medical Problems: (1) Anxiety (2) Asthma (3) Bipolar disorder (4) No chronic problems (5) No chronic problems (6) Psychosis (7) Sinus tachycardia (8) Unspecified psychosis Family History No pertinent family history No pertinent family history Social History Smoking Status: Never Smoker Alcohol Use: occasionally Marital Status: single Housing Status: lives with roommate Occupation Status: [employer] student Current/Historical Medications Scheduled Risperidone (Risperidone), 0.5 MG PO BID@0900,1700 Allergies Coded Allergies: No Known Allergies (Unverified , 08/13/16) Physical Exam Vital Signs Date Time Temp Pulse Resp B/P Pulse Ox O2 Delivery O2 Flow Rate FiO2 09/21/16 01:47 36.7 89 18 98 Room Air Physical Exam GENERAL: Awake, alert, well-appearing, in no distress HENT: Normocephalic, atraumatic. Oropharynx unremarkable. EYES: Normal conjunctiva. Sclera non-icteric. NECK: Supple. No nuchal rigidity. FROM. No JVD. RESPIRATORY: Clear to auscultation. CARDIAC: Regular rate, normal rhythm. Extremities warm and well perfused. Pulses equal. ABDOMEN: Soft, non-distended. No tenderness to palpation. No rebound or guarding. No masses. RECTAL: Deferred. MUSCULOSKELETAL: Chest examination reveals no tenderness. The back is symmetrical on inspection without obvious abnormality. There is no CVA tenderness to palpation. No joint edema. LOWER EXTREMITIES: Calves are equal size bilaterally and non-tender. No edema. No discoloration. NEURO: Normal sensorium. No sensory or motor deficits noted. SKIN: No rash or jaundice noted. Medical Decision & Procedures Laboratory Results 09/21/16 02:15 Red Blood Count 4.45, Mean Corpuscular Volume 87.4, Mean Corpuscular Hemoglobin 30.1, Mean Corpuscular Hemoglobin Concent 34.4, Mean Platelet Volume 9.0, Neutrophils (%) (Auto) 60.4, Lymphocytes (%) (Auto) 28.4, Monocytes (%) (Auto) 8.0, Eosinophils (%) (Auto) 2.6, Basophils (%) (Auto) 0.4, Neutrophils # (Auto) 6.39, Lymphocytes # (Auto) 3.01, Monocytes # (Auto) 0.85, Eosinophils # (Auto) 0.27, Basophils # (Auto) 0.04 09/21/16 02:15 Test 09/21/16 02:15 09/21/16 02:40 White Blood Count 10.58 K/uL (4.8-10.8) Red Blood Count 4.45 M/uL (4.2-5.4) Hemoglobin 13.4 g/dL (12.0-16.0) Hematocrit 38.9 % (37-47) Mean Corpuscular Volume 87.4 fL (80-100) Mean Corpuscular Hemoglobin 30.1 pg (25-34) Mean Corpuscular Hemoglobin Concent 34.4 g/dl (32-36) Platelet Count 290 K/uL (130-400) Mean Platelet Volume 9.0 fL (7.4-10.4) Neutrophils (%) (Auto) 60.4 % Lymphocytes (%) (Auto) 28.4 % Monocytes (%) (Auto) 8.0 % Eosinophils (%) (Auto) 2.6 % Basophils (%) (Auto) 0.4 % Neutrophils # (Auto) 6.39 K/uL (1.4-6.5) Lymphocytes # (Auto) 3.01 K/uL (1.2-3.4) Monocytes # (Auto) 0.85 K/uL (0.11-0.59) Eosinophils # (Auto) 0.27 K/uL (0-0.5) Basophils # (Auto) 0.04 K/uL (0-0.2) RDW Standard Deviation 41.4 fL (36.4-46.3) RDW Coefficient of Variation 12.8 % (11.5-14.5) Immature Granulocyte % (Auto) 0.2 % Immature Granulocyte # (Auto) 0.02 K/uL (0.00-0.02) Anion Gap 10.0 mmol/L (3-11) Est Creatinine Clear Calc Drug Dose 128.7 ml/min Estimated GFR () > 150.0 Estimated GFR (Non- 133.7 BUN/Creatinine Ratio 28.8 (10-20) Calcium Level 8.5 mg/dl (8.5-10.1) Total Bilirubin 0.3 mg/dl (0.2-1) Direct Bilirubin < 0.1 mg/dl (0-0.2) Aspartate Amino Transf (AST/SGOT) 7 U/L (15-37) Alanine Aminotransferase (ALT/SGPT) 16 U/L (12-78) Alkaline Phosphatase 52 U/L (45-117) Ammonia 49.0 umol/L (11-32) Total Protein 6.6 gm/dl (6.4-8.2) Albumin 3.6 gm/dl (3.4-5.0) Thyroid Stimulating Hormone (TSH) 1.720 uIu/ml (0.300-4.500) Valproic Acid (Depakene) Level 45 mcg/ml (50-100) Ethyl Alcohol mg/dL < 3.0 mg/dl (0-3) Urine Color YELLOW Urine Appearance ERROR (CLEAR) Urine pH 5.5 (4.5-7.5) Urine Specific [place] 1.028 (1.000-1.030) Urine Protein NEG (NEG) Urine Glucose (UA) NEG (NEG) Urine Ketones TRACE (NEG) Urine Occult Blood NEG (NEG) Urine Nitrite NEG (NEG) Urine Bilirubin NEG (NEG) Urine Urobilinogen NEG (NEG) Urine Leukocyte Esterase NEG (NEG) Urine Opiates Screen NEG (NEG) Urine Methadone, Qualitative NEG (NEG) Urine Barbiturates NEG (NEG) Urine Phencyclidine (PCP) Level NEG (NEG) Ur Amphetamine/Methamphetamine NEG (NEG) MDMA (Ecstasy) Screen NEG (NEG) Urine Benzodiazepines Screen NEG (NEG) Urine Cocaine Metabolite NEG (NEG) Urine Marijuana (THC) NEG (NEG) Laboratory results reviewed by me ED Course 0217: The patient was evaluated in room A8. A complete history and physical exam was performed. 0430: Upon reevaluation, the patient would like to go home. Discussed the discharge instructions with her. She verbalized understanding. The patient is ready for discharge. Medical Decision Differential diagnosis: Etiologies such as mood disorder, Depakote overdose, infection, hypoglycemia, electrolyte abnormalities, cardiac sources, intracerebral event, toxicologic, neurologic, as well as others were entertained. Patient's Depakote level is within range patient's ammonia slightly high but she has no alteration in mental status. On repeat examination 4:30 AM she is resting in no distress she contracts for safety has no suicidal ideation. Patient's friend is with her and he will observe her for the next day. There are no other complaints from the patient and we will discharge her for follow-up Impression Primary Impression: Anxiety Scribe Attestation The scribe's documentation has been prepared under my direction and personally reviewed by me in its entirety. I confirm that the note above accurately reflects all work, treatment, procedures, and medical decision making performed by me. Departure Information Dispostion Home / Self-Care Referrals Kimber Pan PA-C (PCP) Forms HOME CARE DOCUMENTATION FORM, IMPORTANT VISIT INFORMATION Patient Instructions Anxiety Disorder, [facility]
[2016-09-21 02:48] LABS: ALT/SGPT 16 U/L (12-78); AST/SGOT 7 U/L (15-37); BLOOD UREA NITROGEN 15 mg/dl (7-18); BUN/CREATININE RATIO 28.8 (10-20); CALCIUM 8.5 mg/dl (8.5-10.1); CARBON DIOXIDE 26 mmol/L (21-32); CHLORIDE 107 mmol/L (98-107); CREATININE 0.52 mg/dl (0.60-1.20); GLUCOSE 110 mg/dl (70-99); POTASSIUM 3.3 mmol/L (3.5-5.1); SODIUM 143 mmol/L (136-145)
[2016-09-21 02:58] LABS: ALKALINE PHOSPHATASE 52 U/L (45-117)
[2016-09-21 02:59] LABS: URINE BILIRUBIN NEG (NEG); URINE COLOR YELLOW; URINE NITRITE NEG (NEG); URINE PH 5.5 (4.5-7.5); URINE SPECIFIC GRAVITY 1.028 (1.000-1.030); UROBILINOGEN NEG (NEG)
[2016-09-21 03:04] LABS: MANUAL MICROSCOPIC REQUIRED? NO; REVIEW REQ? NO
[2016-09-21 03:22] LABS: BENZODIAZEPINE, URINE NEG (NEG); COCAINE,URINE NEG (NEG); PHENCYCLIDINE, URINE NEG (NEG)
[2016-09-21 04:44] VITALS: BP 118/70; PULSE 70; O2SAT 98
[2016-09-21] MEDS ORDERED: DIVA500T59 PO (04:47)
== END 2016-09-21 04:47 | disposition home or self-care (01) ==
LOC: C.EDB 01:40 → C.EDA 04:47
DX: F41.9 Anxiety disorder, unspecified (principal); J45.909 Unspecified asthma, uncomplicated; F31.9 Bipolar disorder, unspecified

== ENCOUNTER 2016-09-22 18:35 | Emergency (ER) | payer BC ==
[~2016-09-22 18:35] MED LIST changes: +DIVA500T59 PO
[2016-09-22] MEDS ORDERED: HALOPERIDOL LACTATE 5 MG/ML 1 ML VIAL IM STA (18:47)
--- NOTE | 2016-09-22 18:51 | EMERGENCY ROOM VISIT NOTE ---
History Report prepared by Du: Dallas Angela Under the Supervision of: Dr. Mundo Mena M.D. First contact with patient: 18:47 Chief Complaint: MENTAL HEALTH EVALUATION History of Present Illness The patient is a 26 year old female who presents to the Emergency Room for a mental health evaluation. Per the police and EMS, the patient was running around her apartment complex while naked. They additionally state that the patient is bipolar, and she has not been taking her medication. The patient states that no medications help her. Source of History: patient, police, EMS Onset: prior to arrival Position: other (global) Quality: other (mental health evaluation) Review of Systems See HPI for pertinent positives & negatives. A total of 10 systems reviewed and were otherwise negative. 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 Manic. Flights of thought/ ideas. Tangential speech. HEENT: No acute trauma, normocephalic atraumatic, mucous membranes moist, no nasal congestion, no scleral icterus. NECK: No stridor, no adenopathy, no meningismus, trachea is midline. LUNGS: No dyspnea. Clear to auscultation and equal bilaterally. No wheeze, no rhonchi. HEART: Regular rate and rhythm. No murmurs, rubs, gallops appreciated. ABDOMEN: Soft, nontender, bowel sounds positive, no masses appreciated, no peritonitis. BACK: No midline tenderness, no CVA tenderness EXTREMITIES: Normal motion all extremities, no cyanosis, no edema. NEUROLOGIC: Manic rapid speech, no acute motor or sensory deficits, no focal weakness, cranial nerves grossly intact. SKIN: No rash, no jaundice, no diaphoresis. PSYCH: Manic. Unable to determine homicidal and suicidal ideations. Medical Decision & Procedures Laboratory Results 09/22/16 19:05 Red Blood Count 4.46, Mean Corpuscular Volume 87.0, Mean Corpuscular Hemoglobin 30.3, Mean Corpuscular Hemoglobin Concent 34.8, Mean Platelet Volume 9.1, Neutrophils (%) (Auto) 67.7, Lymphocytes (%) (Auto) 23.7, Monocytes (%) (Auto) 7.5, Eosinophils (%) (Auto) 0.6, Basophils (%) (Auto) 0.3, Neutrophils # (Auto) 6.46, Lymphocytes # (Auto) 2.26, Monocytes # (Auto) 0.72, Eosinophils # (Auto) 0.06, Basophils # (Auto) 0.03 09/22/16 19:05 Test 09/22/16 19:05 09/22/16 19:12 White Blood Count 9.55 K/uL (4.8-10.8) Red Blood Count 4.46 M/uL (4.2-5.4) Hemoglobin 13.5 g/dL (12.0-16.0) Hematocrit 38.8 % (37-47) Mean Corpuscular Volume 87.0 fL (80-100) Mean Corpuscular Hemoglobin 30.3 pg (25-34) Mean Corpuscular Hemoglobin Concent 34.8 g/dl (32-36) Platelet Count 271 K/uL (130-400) Mean Platelet Volume 9.1 fL (7.4-10.4) Neutrophils (%) (Auto) 67.7 % Lymphocytes (%) (Auto) 23.7 % Monocytes (%) (Auto) 7.5 % Eosinophils (%) (Auto) 0.6 % Basophils (%) (Auto) 0.3 % Neutrophils # (Auto) 6.46 K/uL (1.4-6.5) Lymphocytes # (Auto) 2.26 K/uL (1.2-3.4) Monocytes # (Auto) 0.72 K/uL (0.11-0.59) Eosinophils # (Auto) 0.06 K/uL (0-0.5) Basophils # (Auto) 0.03 K/uL (0-0.2) RDW Standard Deviation 40.7 fL (36.4-46.3) RDW Coefficient of Variation 12.7 % (11.5-14.5) Immature Granulocyte % (Auto) 0.2 % Immature Granulocyte # (Auto) 0.02 K/uL (0.00-0.02) Nucleated RBC Absolute Count (auto) 0.02 K/uL (0-0) Nucleated Red Blood Cells % 0.2 % Anion Gap 14.0 mmol/L (3-11) Estimated GFR () > 150.0 Estimated GFR (Non- 133.7 BUN/Creatinine Ratio 23.6 (10-20) Calcium Level 8.6 mg/dl (8.5-10.1) Total Bilirubin 0.7 mg/dl (0.2-1) Aspartate Amino Transf (AST/SGOT) 10 U/L (15-37) Alanine Aminotransferase (ALT/SGPT) 12 U/L (12-78) Alkaline Phosphatase 47 U/L (45-117) Ammonia 13.0 umol/L (11-32) Total Protein 6.8 gm/dl (6.4-8.2) Albumin 4.0 gm/dl (3.4-5.0) Globulin 2.8 gm/dl (2.5-4.0) Albumin/Globulin Ratio 1.4 (0.9-2) Thyroid Stimulating Hormone (TSH) 0.907 uIu/ml (0.300-4.500) Salicylates Level < 1.7 mg/dl (2.8-20) Acetaminophen Level < 2 ug/ml (10-30) Valproic Acid (Depakene) Level 28 mcg/ml (50-100) Ethyl Alcohol mg/dL < 3.0 mg/dl (0-3) Urine Color DK YELLOW Urine Appearance CLEAR (CLEAR) Urine pH 5.5 (4.5-7.5) Urine Specific [place] 1.035 (1.000-1.030) Urine Protein TRACE (NEG) Urine Glucose (UA) NEG (NEG) Urine Ketones 3+ (NEG) Urine Occult Blood NEG (NEG) Urine Nitrite NEG (NEG) Urine Bilirubin NEG (NEG) Urine Urobilinogen NEG (NEG) Urine Leukocyte Esterase NEG (NEG) Urine WBC (Auto) 1-5 /hpf (0-5) Urine RBC (Auto) 0-4 /hpf (0-4) Urine Hyaline Casts (Auto) /lpf (0-5) Urine Epithelial Cells (Auto) >30 /lpf (0-5) Urine Bacteria (Auto) NEG (NEG) Urine Pathogenic Casts /lpf (0) Urine Mucus PRESENT (NONE PRSENT) Urine Test NEG (NEG) Urine Opiates Screen NEG (NEG) Urine Methadone, Qualitative NEG (NEG) Urine Barbiturates NEG (NEG) Urine Phencyclidine (PCP) Level NEG (NEG) Ur Amphetamine/Methamphetamine NEG (NEG) MDMA (Ecstasy) Screen NEG (NEG) Urine Benzodiazepines Screen NEG (NEG) Urine Cocaine Metabolite NEG (NEG) Urine Marijuana (THC) NEG (NEG) Laboratory results as reviewed by me. Medications Administered Medications (Trade) Dose Ordered Sig/Rafa Route Start Time Stop Time Status Last Admin Dose Admin Haloperidol Lactate 5 mg 5 mg NOW STAT IM 09/22/16 18:47 09/22/16 18:49 DC 09/22/16 18:53 5 MG Sodium Chloride (Nss 1000ml) 1,000 ml @ 999 mls/hr Q1H1M STAT IV 09/22/16 20:32 09/22/16 21:32 DC 09/22/16 20:55 999 MLS/HR ECG Indication: other (mental health evaluation) Rate (beats per minute): 112 Rhythm: sinus tachycardia Findings: no acute ischemic change, no ectopy, other (QTC 432) ED Course 1845: The patient was evaluated in room A8. A complete history and physical exam was performed. 1846: Haldol Inj 5mg IM 1929: I reassessed the patient, and she was calm and sleeping. 2028: The patient had ketones in her urine and a liter of saline solution was ordered for the patient. 2031: Sodium Chloride 1000 ml @ 999 mls/hr IV 2126: On reevaluation, the patient was sleeping. 2143: I talked to the patient's mother over the phone, and she is in [place]. She notes that the patient has a long history of psychiatric disorders, and she thinks that the patient is not taking her medications. The mother states that she herself is on Haldol, Cogentin, and Depakote. 223: The patient is going to be signed out to Dr. Sanchez at the change of shift. Medical Decision Differential: Mood Disorder, Overdose, Infectious, Electrolyte Abnormality, Cardiac, Hepatic, Endocrine, Toxicologic, Neurologic, amongst other pathologies entertained. 26 yr old female arrives acutely psychotic in a manic episode. Long history of bipolar and evidently has been having worsening cee recently. 302 petition by police. Patient given Ativan E [employer] and given Haldol to treat her psychosis here. Vastly improved though a bit sleepy. Review chart notes recent trip here for milder symptoms. Suspect minimal sleep last few days thus now that finally sleeping a bit more tired. Medically clear though will be monitored further this evening by Dr Sanchez. CAN help consulted. Will need involuntary mental health placement and I have signed 302 [place] for her involuntary placement. No evidence of meningitis, encephalitis, liver failure nor acute overdose. I do not see current indication for medical admission. Impression Primary Impression: Acute psychosis Additional Impression: Cee Scribe Attestation The scribe's documentation has been prepared under my direction and personally reviewed by me in its entirety. I confirm that the note above accurately reflects all work, treatment, procedures, and medical decision making performed by me. Departure Information Referrals Kimber Pan PA-C (PCP) Patient Instructions My [facility] Problem Qualifiers
[2016-09-22 19:29] LABS: BASO % 0.3 %; BASO ABS # 0.03 K/uL (0-0.2); COMPLETE YES; EOS % 0.6 %; HEMATOCRIT 38.8 % (37-47); IG% 0.2 %; LYMPH % 23.7 %; LYMPH ABS # 2.26 K/uL (1.2-3.4); MEAN CORPUSCULAR HEMOGLOBIN 30.3 pg (25-34); MEAN CORPUSCULAR HGB CONC 34.8 g/dl (32-36); MEAN PLATELET VOLUME 9.1 fL (7.4-10.4); MONO % 7.5 %; NEUT % 67.7 %; PLATELET COUNT 271 K/uL (130-400); RED BLOOD COUNT 4.46 M/uL (4.2-5.4); WHITE BLOOD COUNT 9.55 K/uL (4.8-10.8)
[2016-09-22 19:36] LABS: URINE APPEARANCE CLEAR (CLEAR); URINE COLOR DK YELLOW; URINE EPITHELIAL CELL AUTO >30 /lpf (0-5); URINE NITRITE NEG (NEG); URINE PH 5.5 (4.5-7.5); URINE SPECIFIC GRAVITY 1.035 (1.000-1.030); UROBILINOGEN NEG (NEG); ZZUR CULT IF INDIC CLEAN CATCH NO
[2016-09-22 19:37] LABS: MANUAL MICROSCOPIC REQUIRED? NO; REVIEW REQ? YES
[2016-09-22 19:38] LABS: URINE BILIRUBIN NEG (NEG)
[2016-09-22 19:46] LABS: URINE MUCUS PRESENT (NONE PRSENT)
[2016-09-22 19:49] LABS: ALT/SGPT 12 U/L (12-78); AST/SGOT 10 U/L (15-37); BLOOD UREA NITROGEN 12 mg/dl (7-18); BUN/CREATININE RATIO 23.6 (10-20); CALCIUM 8.6 mg/dl (8.5-10.1); CARBON DIOXIDE 25 mmol/L (21-32); CHLORIDE 106 mmol/L (98-107); CREATININE 0.52 mg/dl (0.60-1.20); GLUCOSE 100 mg/dl (70-99); POTASSIUM 2.9 mmol/L (3.5-5.1); SODIUM 145 mmol/L (136-145)
[2016-09-22 19:51] LABS: BENZODIAZEPINE, URINE NEG (NEG); COCAINE,URINE NEG (NEG); PHENCYCLIDINE, URINE NEG (NEG)
[2016-09-22 19:59] LABS: ALB/GLOB RATIO 1.4 (0.9-2); ALKALINE PHOSPHATASE 47 U/L (45-117); THYROID STIMULATING HORMONE 0.907 uIu/ml (0.300-4.500)
[2016-09-22 20:17] LABS: ACETAMINOPHEN < 2 ug/ml (10-30)
[2016-09-22] MEDS ORDERED: SODIUM CHLORIDE 0.9% 1000ML 1,000 ML IV STA (20:32)
--- NOTE | 2016-09-23 00:48 | EMERGENCY ROOM VISIT NOTE ---
ED Visit Note Patient resting in no distress no issues throughout emergency department evaluation. Patient is under 302. Case was discussed with the crisis counselor and the patient has been accepted at the [facility] in the morning. Problem List Medical Problems: (1) Anxiety Status: Chronic (2) Asthma Status: Chronic (3) Bipolar disorder Status: Chronic (4) No chronic problems Status: Chronic Current/Historical Medications Scheduled Divalproex Sodium (Depakote), 500 MG PO DAILY Risperidone (Risperidone), 0.5 MG PO BID@0900,1700 Allergies Coded Allergies: No Known Allergies (Unverified , 08/13/16) Vital Signs Date Time Temp Pulse Resp B/P Pulse Ox O2 Delivery O2 Flow Rate FiO2 09/22/16 20:30 75 18 88/51 97 Room Air 09/22/16 18:50 118 18 135/85 97 Room Air Laboratory Results 09/22/16 19:05 Red Blood Count 4.46, Mean Corpuscular Volume 87.0, Mean Corpuscular Hemoglobin 30.3, Mean Corpuscular Hemoglobin Concent 34.8, Mean Platelet Volume 9.1, Neutrophils (%) (Auto) 67.7, Lymphocytes (%) (Auto) 23.7, Monocytes (%) (Auto) 7.5, Eosinophils (%) (Auto) 0.6, Basophils (%) (Auto) 0.3, Neutrophils # (Auto) 6.46, Lymphocytes # (Auto) 2.26, Monocytes # (Auto) 0.72, Eosinophils # (Auto) 0.06, Basophils # (Auto) 0.03 09/22/16 19:05 Test 09/22/16 19:05 09/22/16 19:12 White Blood Count 9.55 K/uL (4.8-10.8) Red Blood Count 4.46 M/uL (4.2-5.4) Hemoglobin 13.5 g/dL (12.0-16.0) Hematocrit 38.8 % (37-47) Mean Corpuscular Volume 87.0 fL (80-100) Mean Corpuscular Hemoglobin 30.3 pg (25-34) Mean Corpuscular Hemoglobin Concent 34.8 g/dl (32-36) Platelet Count 271 K/uL (130-400) Mean Platelet Volume 9.1 fL (7.4-10.4) Neutrophils (%) (Auto) 67.7 % Lymphocytes (%) (Auto) 23.7 % Monocytes (%) (Auto) 7.5 % Eosinophils (%) (Auto) 0.6 % Basophils (%) (Auto) 0.3 % Neutrophils # (Auto) 6.46 K/uL (1.4-6.5) Lymphocytes # (Auto) 2.26 K/uL (1.2-3.4) Monocytes # (Auto) 0.72 K/uL (0.11-0.59) Eosinophils # (Auto) 0.06 K/uL (0-0.5) Basophils # (Auto) 0.03 K/uL (0-0.2) RDW Standard Deviation 40.7 fL (36.4-46.3) RDW Coefficient of Variation 12.7 % (11.5-14.5) Immature Granulocyte % (Auto) 0.2 % Immature Granulocyte # (Auto) 0.02 K/uL (0.00-0.02) Nucleated RBC Absolute Count (auto) 0.02 K/uL (0-0) Nucleated Red Blood Cells % 0.2 % Anion Gap 14.0 mmol/L (3-11) Estimated GFR () > 150.0 Estimated GFR (Non- 133.7 BUN/Creatinine Ratio 23.6 (10-20) Calcium Level 8.6 mg/dl (8.5-10.1) Total Bilirubin 0.7 mg/dl (0.2-1) Aspartate Amino Transf (AST/SGOT) 10 U/L (15-37) Alanine Aminotransferase (ALT/SGPT) 12 U/L (12-78) Alkaline Phosphatase 47 U/L (45-117) Ammonia 13.0 umol/L (11-32) Total Protein 6.8 gm/dl (6.4-8.2) Albumin 4.0 gm/dl (3.4-5.0) Globulin 2.8 gm/dl (2.5-4.0) Albumin/Globulin Ratio 1.4 (0.9-2) Thyroid Stimulating Hormone (TSH) 0.907 uIu/ml (0.300-4.500) Salicylates Level < 1.7 mg/dl (2.8-20) Acetaminophen Level < 2 ug/ml (10-30) Valproic Acid (Depakene) Level 28 mcg/ml (50-100) Ethyl Alcohol mg/dL < 3.0 mg/dl (0-3) Urine Color DK YELLOW Urine Appearance CLEAR (CLEAR) Urine pH 5.5 (4.5-7.5) Urine Specific [place] 1.035 (1.000-1.030) Urine Protein TRACE (NEG) Urine Glucose (UA) NEG (NEG) Urine Ketones 3+ (NEG) Urine Occult Blood NEG (NEG) Urine Nitrite NEG (NEG) Urine Bilirubin NEG (NEG) Urine Urobilinogen NEG (NEG) Urine Leukocyte Esterase NEG (NEG) Urine WBC (Auto) 1-5 /hpf (0-5) Urine RBC (Auto) 0-4 /hpf (0-4) Urine Hyaline Casts (Auto) /lpf (0-5) Urine Epithelial Cells (Auto) >30 /lpf (0-5) Urine Bacteria (Auto) NEG (NEG) Urine Pathogenic Casts /lpf (0) Urine Mucus PRESENT (NONE PRSENT) Urine Test NEG (NEG) Urine Opiates Screen NEG (NEG) Urine Methadone, Qualitative NEG (NEG) Urine Barbiturates NEG (NEG) Urine Phencyclidine (PCP) Level NEG (NEG) Ur Amphetamine/Methamphetamine NEG (NEG) MDMA (Ecstasy) Screen NEG (NEG) Urine Benzodiazepines Screen NEG (NEG) Urine Cocaine Metabolite NEG (NEG) Urine Marijuana (THC) NEG (NEG) Medications Administered Medications (Trade) Dose Ordered Sig/Rafa Route Start Time Stop Time Status Last Admin Dose Admin Haloperidol Lactate 5 mg 5 mg NOW STAT IM 09/22/16 18:47 09/22/16 18:49 DC 09/22/16 18:53 5 MG Sodium Chloride (Nss 1000ml) 1,000 ml @ 999 mls/hr Q1H1M STAT IV 09/22/16 20:32 09/22/16 21:32 DC 09/22/16 20:55 999 MLS/HR Departure Information Impression Primary Impression: Acute psychosis Additional Impression: Kalina Referrals Kimber Pan PA-C (PCP) Forms HOME CARE DOCUMENTATION FORM, IMPORTANT VISIT INFORMATION Patient Instructions [facility] Problem Qualifiers
[2016-09-23] MEDS ORDERED: LORAZEPAM 1 MG TAB PO STA (07:40)
--- NOTE | 2016-09-23 07:42 | EMERGENCY ROOM VISIT NOTE ---
ED Visit Note Has contacted by the nurse stated that the patient was pacing the room, appears to be anxious and was tachycardic. The patient was treated with Ativan by mouth. Her symptoms improved. She is going to the [facility] at 8:30am.
[2016-09-23] MEDS ORDERED: DIVALPROEX 500 MG EXTENDED RELEASE TAB PO ONE (09:00)
[2016-09-23 12:15] VITALS: BP 121/74; PULSE 118; O2SAT 99
== END 2016-09-23 12:37 ==
LOC: C.EDA 18:47
DX: F31.2 Bipolar disorder, current episode manic severe with psychotic features (principal); J45.909 Unspecified asthma, uncomplicated; F41.9 Anxiety disorder, unspecified; Z79.899 Other long term (current) drug therapy

== ENCOUNTER 2016-11-18 12:28 | Emergency (ER) | payer BC ==
[~2016-11-18] VITALS: Ht 149.9 cm; Wt 58.8 kg
[2016-11-18 12:31] VITALS: TEMP 36.7; Ht 149.9 cm; Wt 58.8 kg
[2016-11-18 13:26] LABS: BASO % 0.2 %; BASO ABS # 0.01 K/uL (0-0.2); COMPLETE YES; EOS % 0.6 %; HEMATOCRIT 40.3 % (37-47); IG% 0.2 %; LYMPH % 21.8 %; LYMPH ABS # 1.38 K/uL (1.2-3.4); MEAN CORPUSCULAR HEMOGLOBIN 30.1 pg (25-34); MEAN CORPUSCULAR HGB CONC 34.2 g/dl (32-36); MEAN PLATELET VOLUME 8.6 fL (7.4-10.4); MONO % 5.4 %; NEUT % 71.8 %; PLATELET COUNT 205 K/uL (130-400); RED BLOOD COUNT 4.58 M/uL (4.2-5.4); WHITE BLOOD COUNT 6.32 K/uL (4.8-10.8)
[2016-11-18 13:26] LABS: URINE APPEARANCE CLEAR (CLEAR); URINE BILIRUBIN NEG (NEG); URINE COLOR DK YELLOW; URINE EPITHELIAL CELL AUTO >30 /lpf (0-5); URINE NITRITE NEG (NEG); URINE PH 5.5 (4.5-7.5); URINE SPECIFIC GRAVITY 1.034 (1.000-1.030); UROBILINOGEN NEG (NEG)
[2016-11-18 13:29] LABS: MANUAL MICROSCOPIC REQUIRED? NO; REVIEW REQ? NO
[2016-11-18 13:44] LABS: BUN/CREATININE RATIO 20.1 (10-20); CREATININE 0.59 mg/dl (0.60-1.20); POTASSIUM 3.8 mmol/L (3.5-5.1)
[2016-11-18 13:45] LABS: CALCIUM 10.3 mg/dl (8.5-10.1)
[2016-11-18 13:55] LABS: THYROID STIMULATING HORMONE 1.08 uIu/ml (0.300-4.500)
[2016-11-18 14:01] LABS: BENZODIAZEPINE, URINE NEG (NEG); COCAINE,URINE NEG (NEG); PHENCYCLIDINE, URINE NEG (NEG)
[2016-11-18] MEDS ORDERED: DPKSR/250 PO (14:01)
[2016-11-18] MEDS ORDERED: RISP-99 PO (14:03)
[2016-11-18] MEDS ORDERED: ZOLP5TAB PO (14:05)
[2016-11-18] MEDS ORDERED: NURSING VERBAL MED ORDER ONE (17:00)
[2016-11-18] MEDS ORDERED: LORAZEPAM 1 MG TAB ONE (17:05)
[2016-11-18] MEDS ORDERED: LORAZEPAM 1 MG TAB SL SCH (17:15)
--- NOTE | 2016-11-18 17:57 | EMERGENCY ROOM VISIT NOTE ---
History Report prepared by Du: Aneta Neff Under the Supervision of: Dr. Azael Roberts D.O. First contact with patient: 12:34 Chief Complaint: MENTAL HEALTH EVALUATION Stated Complaint: SUICIDAL THOUGHTS History of Present Illness The patient is a 26 year old female who presents to the Emergency Room for a mental health evaluation of symptoms that worsened today. The patient states that she was diagnosed with bipolar disorder 3 months ago after being found outside delirious, manic, and naked. She states that 1 month later she was found delirious and manic in her apartment while talking about suicide. Her friend found her and she spent 2 weeks in the [place]. She states that she was still manic. The patient states that she has been in a depression recently and found out that she lost her job today. She states that she can't deal with her bills without her job and she is disappointed in herself. The patient states that she can't deal with everything in her life standing still anymore and states that she does not want to live. The patient denies having a plan and states that she is afraid. She has been taking her medications as prescribed. She denies any drug or alcohol use. The patient denies any attempts to harm herself in the past. She states that she is unsure of if she wants to come into the hospital because she isn't sure if she can afford it. The patient states that she has not eaten, but otherwise denies any physical complaints including any pain. Source of History: patient Onset: today Position: other (global) Quality: other (mental health evaluation) Timing: worsening Note: suicidal ideations without a plan Review of Systems See HPI for pertinent positives & negatives. A total of 10 systems reviewed and were otherwise negative. Past Medical & Surgical Medical Problems: (1) Anxiety (2) Asthma (3) Bipolar disorder (4) No chronic problems (5) No chronic problems (6) Psychosis (7) Sinus tachycardia (8) Unspecified psychosis Family History No pertinent family history Social History Smoking Status: Never Smoker Alcohol Use: occasionally Marital Status: single Housing Status: lives with roommate Occupation Status: [employer] student Current/Historical Medications Scheduled Divalproex Sodium (Depakote), 1,000 MG PO HS Divalproex Sodium (Depakote Extended-Release), 250 MG PO QAM Risperidone (Risperidone), 0.5 MG PO BID@0900,1700 Zolpidem Tartrate (Ambien), 5 MG PO HS Allergies Coded Allergies: No Known Allergies (Unverified , 11/18/16) Physical Exam Vital Signs Date Time Temp Pulse Resp B/P (MAP) Pulse Ox O2 Delivery O2 Flow Rate FiO2 11/18/16 17:06 88 22 106/63 99 Room Air 11/18/16 14:56 89 16 115/63 99 Room Air 11/18/16 12:31 36.7 60 18 114/78 98 Room Air Physical Exam GENERAL: alert, sitting up in bed, disheveled, tearful, well appearing, well nourished, no distress, non-toxic EYE EXAM: conjunctiva injected OROPHARYNX: no exudate, no erythema, lips, buccal mucosa, and tongue normal and mucous membranes are moist NECK: supple, no nuchal rigidity, no adenopathy, non-tender LUNGS: Clear to auscultation. Normal chest wall mechanics HEART: tachycardic, no murmurs, S1 normal and S2 normal ABDOMEN: abdomen soft, non-tender, normo-active bowel sounds, no masses, no rebound or guarding. BACK: Back is symmetrical on inspection and there is no deformity, no midline tenderness, no CVA tenderness. SKIN: no rashes and no bruising UPPER EXTREMITIES: upper extremities are grossly normal. LOWER EXTREMITIES: No pitting edema. NEURO EXAM: Normal sensorium, cranial nerves II-XII grossly intact, normal speech, no gross weakness of arms, no gross weakness of legs. PSYCH: Admits to suicidal ideation, severe depression, not eating or drinking. Medical Decision & Procedures Laboratory Results 11/18/16 13:09 Red Blood Count 4.58, Mean Corpuscular Volume 88.0, Mean Corpuscular Hemoglobin 30.1, Mean Corpuscular Hemoglobin Concent 34.2, Mean Platelet Volume 8.6, Neutrophils (%) (Auto) 71.8, Lymphocytes (%) (Auto) 21.8, Monocytes (%) (Auto) 5.4, Eosinophils (%) (Auto) 0.6, Basophils (%) (Auto) 0.2, Neutrophils # (Auto) 4.54, Lymphocytes # (Auto) 1.38, Monocytes # (Auto) 0.34, Eosinophils # (Auto) 0.04, Basophils # (Auto) 0.01 11/18/16 13:09 Test 11/18/16 12:50 11/18/16 13:07 11/18/16 13:09 Urine Color DK YELLOW Urine Appearance CLEAR (CLEAR) Urine pH 5.5 (4.5-7.5) Urine Specific [place] 1.034 (1.000-1.030) Urine Protein NEG (NEG) Urine Glucose (UA) NEG (NEG) Urine Ketones 2+ (NEG) Urine Occult Blood NEG (NEG) Urine Nitrite NEG (NEG) Urine Bilirubin NEG (NEG) Urine Urobilinogen NEG (NEG) Urine Leukocyte Esterase TRACE (NEG) Urine WBC (Auto) 10-30 /hpf (0-5) Urine RBC (Auto) 5-10 /hpf (0-4) Urine Hyaline Casts (Auto) 10-30 /lpf (0-5) Urine Epithelial Cells (Auto) >30 /lpf (0-5) Urine Bacteria (Auto) 1+ (NEG) Urine Opiates Screen NEG (NEG) Urine Methadone, Qualitative NEG (NEG) Urine Barbiturates NEG (NEG) Urine Phencyclidine (PCP) Level NEG (NEG) Ur Amphetamine/Methamphetamine NEG (NEG) MDMA (Ecstasy) Screen NEG (NEG) Urine Benzodiazepines Screen NEG (NEG) Urine Cocaine Metabolite NEG (NEG) Urine Marijuana (THC) NEG (NEG) Bedside Glucose 85 mg/dl (70-90) White Blood Count 6.32 K/uL (4.8-10.8) Red Blood Count 4.58 M/uL (4.2-5.4) Hemoglobin 13.8 g/dL (12.0-16.0) Hematocrit 40.3 % (37-47) Mean Corpuscular Volume 88.0 fL (80-100) Mean Corpuscular Hemoglobin 30.1 pg (25-34) Mean Corpuscular Hemoglobin Concent 34.2 g/dl (32-36) Platelet Count 205 K/uL (130-400) Mean Platelet Volume 8.6 fL (7.4-10.4) Neutrophils (%) (Auto) 71.8 % Lymphocytes (%) (Auto) 21.8 % Monocytes (%) (Auto) 5.4 % Eosinophils (%) (Auto) 0.6 % Basophils (%) (Auto) 0.2 % Neutrophils # (Auto) 4.54 K/uL (1.4-6.5) Lymphocytes # (Auto) 1.38 K/uL (1.2-3.4) Monocytes # (Auto) 0.34 K/uL (0.11-0.59) Eosinophils # (Auto) 0.04 K/uL (0-0.5) Basophils # (Auto) 0.01 K/uL (0-0.2) RDW Standard Deviation 41.3 fL (36.4-46.3) RDW Coefficient of Variation 12.9 % (11.5-14.5) Immature Granulocyte % (Auto) 0.2 % Immature Granulocyte # (Auto) 0.01 K/uL (0.00-0.02) Anion Gap 8.0 mmol/L (3-11) Est Creatinine Clear Calc Drug Dose 114.8 ml/min Estimated GFR () 148.7 Estimated GFR (Non- 128.3 BUN/Creatinine Ratio 20.1 (10-20) Calcium Level 10.3 mg/dl (8.5-10.1) Total Bilirubin 0.5 mg/dl (0.2-1) Direct Bilirubin 0.1 mg/dl (0-0.2) Aspartate Amino Transf (AST/SGOT) 24 U/L (15-37) Alanine Aminotransferase (ALT/SGPT) 21 U/L (12-78) Alkaline Phosphatase 42 U/L (45-117) Total Protein 7.1 gm/dl (6.4-8.2) Albumin 3.8 gm/dl (3.4-5.0) Thyroid Stimulating Hormone (TSH) 1.080 uIu/ml (0.300-4.500) Ethyl Alcohol mg/dL < 3.0 mg/dl (0-3) Laboratory results per my review. Medications Administered Medications (Trade) Dose Ordered Sig/Rafa Route Start Time Stop Time Status Last Admin Dose Admin Lorazepam (Ativan Tab) 1 mg TODAY@1715 SL 11/18/16 17:15 11/18/16 23:59 11/18/16 17:08 1 MG ED Course ED COURSE: Vital signs were reviewed and showed normal. The patients medical record was reviewed The above diagnostic studies were performed and reviewed. ED treatments and interventions as stated above. 1249: The patient was evaluated in room A5. A complete history and physical examination was performed. 1520: I reassessed and updated the patient. 1623: The patient is being referred to the [facility]. 1715: Ordered Ativan 1 mg SL 1749: The psych geriatric case manager informed me that the patient has been accepted to the [facility]. The patient remained stable while under my care. Medical Decision Differential diagnoses includes but is not limited to mood disorder, infection, hypoglycemia, electrolyte abnormalities, cardiac sources, intracerebral event, toxicologic, neurologic. Medication Reconciliation: I attest that I have personally reviewed the patient' s current medication list. Blood pressure screening: Patient was found to have normal blood pressure on screening and does not require follow-up. Patient is a 26-year-old female who presents the ER for suicidal thoughts so she was severe depression and unable to eat and drink secondary to losing her job. She has a history of bipolar was recently admitted and discharged the [facility]. CBC along with BMP, LFTs, bilirubin and TSH are unremarkable. Urine tox is negative. Alcohol was negative. UA was contaminated. Patient was medically cleared and was accepted to the [facility] and will be transferred on a 201. Impression Primary Impression: Mood disorder Additional Impressions: Suicidal ideations Depression Scribe Attestation The scribe's documentation has been prepared under my direction and personally reviewed by me in its entirety. I confirm that the note above accurately reflects all work, treatment, procedures, and medical decision making performed by me. Departure Information Dispostion Mental [facility] Acute Care ([place]) Referrals Kimber Pan PA-C (PCP) Patient Instructions My [facility] Problem Qualifiers Additional Impressions: Depression Depression Type: unspecified Qualified Codes: F32.9 - Major depressive disorder, single episode, unspecified
[2016-11-18 20:42] VITALS: BP 102/66; PULSE 93; O2SAT 99
== END 2016-11-18 20:45 ==
LOC: C.EDB 12:29 → C.EDA 20:45
DX: F32.9 Major depressive disorder, single episode, unspecified (principal); R45.851 Suicidal ideations; J45.909 Unspecified asthma, uncomplicated; F41.9 Anxiety disorder, unspecified; Z79.899 Other long term (current) drug therapy